=== PATIENT | female | born 1975 | race Caucasian/White ===

== ENCOUNTER 2022-12-24 12:20 | Outpatient (OUT) | payer BC, SELFPAY ==
--- NOTE | 2022-12-24 12:33 | ECG_ITS ---
The [facility] Test Date: 2022-12-24 Pat Name: Amisha Black Department: Room: - Gender: Female Scales Inspector: : 1975 Requested By: STEPHANY GEORGE Order Number: [id number] Reading MD: SOFIA FALL Measurements Intervals [place] Rate: 76 P: 55 GA: 137 QRS: 59 QRSD: 82 T: 38 QT: 365 QTc: 413 Interpretive Statements SINUS RHYTHM No previous ECG available for comparison Electronically Signed On 12-25-2022 6:53:55 EDT by SOFIA FALL
--- NOTE | 2022-12-24 13:11 | PM.PRESUREVA ---
History of Present Illness History of Present Illness Chief complaint: PAT visit Narrative: Patient presents for preadmission testing. The patient reports irregular, extensive, heavy, painful periods. She states she has had low hemoglobin and low iron due to the bleeding. She denies nausea, vomiting, fever, or any other complaints. Review of Systems ROS Narrative REVIEW OF SYSTEMS: Negative except as stated in HPI, ten or more systems reviewed. Constitutional: No fever , chills, weakness ENT: No sore throat or epistaxis Cardiovascular: No edema, chest pain, palpitations, or activity intolerance Respiratory: No shortness of breath, cough, or wheezing Musculoskeletal: No joint pain or swelling Gastrointestinal: No abdominal pain, constipation, diarrhea, or vomiting Genitourinary: No dysuria or hematuria Neurological: No numbness, tingling, weakness, or headache Psychiatric: No mood changes PFSH PFS Medical History (Updated 12/24/22 @ 12:57 by Amisha Limon NP) Surgical History (Updated 12/24/22 @ 12:57 by Amisha Limon NP) Family History (Updated 12/24/22 @ 12:57 by Amisha Limon NP) Other Family history of COPD (chronic obstructive pulmonary disease) Family history of coronary artery disease Family history of diabetes mellitus Family history of heart disease Family history of hypertension Family history of lung cancer Family history of myocardial infarction Social History (Updated 12/24/22 @ 12:51 by Amisha Limon NP) Within the past year, how often did you have a drink containing alcohol: 2-3 times a week Smoking status: Current every day smoker What tobacco products do you use: cigarettes Pack-years instructions: Please document either packs per day or cigarettes per day in order for pack years to calculate correctly. If using both packs per day and cigarettes per day, please make sure that they denote the same thing. If they differ, pack-years will calculate based on packs per day. 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 Highest level of school completed/degree received: some college, no degree Meds Home Medications and Allergies Home Medications Medication Instructions Recorded Confirmed Type ascorbic acid (vitamin C) 500 mg mg PO 12/24/22 History capsule ferrous sulfate 325 mg (65 mg 325 mg PO DAILY 12/24/22 12/24/22 History iron) tablet (Feosol) losartan 50 mg tablet 50 mg PO QDAY 12/24/22 12/24/22 History megestrol 20 mg tablet 20 mg PO QDAY 12/24/22 12/24/22 History omeprazole 40 mg capsule,delayed 40 mg PO QDAY 12/24/22 12/24/22 History release Allergies Allergy/AdvReac Type Severity Reaction Status Date / Time No Known Drug Allergies Allergy Verified 12/24/22 12:48 Exam Narrative Exam Narrative: Constitutional: Awake, alert, comfortable, well-appearing, nontoxic, interactive, vital signs as charted Head: Normocephalic, atraumatic Neck: Supple, normal appearance, normal range of motion, no meningeal signs, no lymphadenopathy Respiratory: No respiratory distress, breath sounds clear Cardiovascular: Regular rate and rhythm, strong and regular heart tones Abdomen: Nontender, normal bowel sounds, soft, no CVA tenderness Musculoskeletal: Normal gait, no swelling or edema Skin: No rashes or induration, no lesions, only visible skin inspected Neuro: No neurological deficits, normal sensation Psychiatric: Oriented ?3, normal affect Assessment and Plan Assessment and Plan (1) Anemia: (2) Dysmenorrhea: (3) Dyspareunia: (4) Menorrhagia: (5) Hypertension: Plan vNOTES hysterectomy, possible bilateral salpingo-oophorectomy, possible cystoscopy, possible exploratory laparotomy scheduled with Dr. Dugan 01/01/2023.
[2022-12-24 13:50] LABS: Basophils Absolute Auto 0.1 10^3/uL (0.0-0.1); Basophils Percent Auto 0.6 % (0.2-2.0); Eosinophils Absolute Auto 0.1 10^3/uL (0.0-0.7); Eosinophils Percent Auto 1.3 % (0.9-7.0); Hematocrit 46.9 % (36.0-48.0); Hemoglobin 15.4 g/dL (12.0-16.0); Immature Granulocytes Abs Auto 0.03 10^3/uL (0.00-0.03); Immature Granulocytes Pct Auto 0.3 % (0.0-0.5); Lymphocytes Absolute Auto 1.9 10^3/uL (1.2-3.8); Lymphocytes Percent Auto 20.6 % (20.5-60.0); Mean Corpuscular HGB Conc 32.8 g/dL (29.9-35.2); Mean Corpuscular Hemoglobin 29.8 pg (26.7-34.0); Mean Corpuscular Volume 90.9 fL (81.0-99.0); Mean Platelet Volume 10.3 fL (9.5-13.5); Monocytes Absolute Auto 0.6 10^3/uL (0.3-0.8); Monocytes Percent Auto 6.2 % (1.7-12.0); Neutrophils Absolute Auto 6.7 10^3/uL (1.4-6.5); Platelet Count 313 10^3/uL (150-450); Red Blood Count 5.16 10^6/uL (4.20-5.40); Red Cell Distribution Width 16.2 % (11.0-15.0); White Blood Count 9.4 10^3/uL (4.0-11.0)
[2022-12-24 14:15] LABS: Alanine Aminotransferase 33 U/L (14-59); Albumin Globulin Ratio 1.2; Albumin Level 4.1 g/dL (3.4-5.0); Alkaline Phosphatase 74 U/L (46-116); Anion Gap 14.5; Aspartate Amino Transferase 15 U/L (15-37); BUN Creatinine Ratio 15.9; Bilirubin Direct 0.1 mg/dL (0.0-0.2); Bilirubin Total 0.5 mg/dL (0.2-1.0); Calcium 9.6 mg/dL (8.5-10.1); Carbon Dioxide 25.5 mmol/L (21.0-32.0); Chloride 103 mmol/L (98-107); Estimated GFR (African America >60 (>=60); Estimated GFR (Non-African Ame >60 (>=60); Globulin 3.5 g/dL; Glucose 114 mg/dL (74-106); INR 0.96; Partial Thromboplastin Time 28.5 sec (22.3-36.2); Prothrombin Time 10.2 sec (9.0-11.6); Sodium 139 mmol/L (136-145); Total Protein 7.6 g/dL (6.4-8.2)
== END 2022-12-24 12:21 ==
LOC: PST 12:27
PROVIDERS: Obstetrics & Gynecology
DX: Z01.810 Encounter for preprocedural cardiovascular examination (principal); Z01.812 Encounter for preprocedural laboratory examination; N92.0 Excessive and frequent menstruation with regular cycle; R10.2 Pelvic and perineal pain; N94.6 Dysmenorrhea, unspecified; N94.10 Unspecified dyspareunia
CPT/HCPCS: 36415; 80048; 80076; 85025; 85610; 85730; 93005; G0463

== ENCOUNTER 2023-01-11 11:50 | Outpatient (OUT) | payer BC, SELFPAY | END 2023-01-11 11:51 | disposition home or self-care (01) | LOC: PST 11:50 | PROVIDERS: Visit Provider Obstetrics & Gynecology | DX: Z01.818 Encounter for other preprocedural examination (principal); N92.0 Excessive and frequent menstruation with regular cycle; R10.2 Pelvic and perineal pain; N94.6 Dysmenorrhea, unspecified; N94.10 Unspecified dyspareunia ==

== ENCOUNTER 2023-01-13 06:13 | Day surgery (SDC) | payer BC, SELFPAY ==
[2022-12-24 12:52] VITALS: BP 157/93; PULSE 77; RESP 20; TEMP 36.5; O2SAT 99
[2023-01-13] VITALS (15 sets, daily range): BP systolic 149–162; BP diastolic 80–104; PULSE 71–92; RESP 14–26; TEMP 36.3–36.7; O2SAT 91–96; BMI 29.5
[2023-01-13 06:23] LABS: Basophils Absolute Auto 0.1 10^3/uL (0.0-0.1); Basophils Percent Auto 0.6 % (0.2-2.0); Eosinophils Absolute Auto 0.2 10^3/uL (0.0-0.7); Hematocrit 46.8 % (36.0-48.0); Hemoglobin 15.7 g/dL (12.0-16.0); Immature Granulocytes Abs Auto 0.05 10^3/uL (0.00-0.03); Immature Granulocytes Pct Auto 0.5 % (0.0-0.5); Lymphocytes Absolute Auto 2.1 10^3/uL (1.2-3.8); Mean Corpuscular HGB Conc 33.5 g/dL (29.9-35.2); Mean Corpuscular Hemoglobin 30.8 pg (26.7-34.0); Mean Corpuscular Volume 91.8 fL (81.0-99.0); Mean Platelet Volume 9.9 fL (9.5-13.5); Monocytes Absolute Auto 0.9 10^3/uL (0.3-0.8); Monocytes Percent Auto 8.4 % (1.7-12.0); Neutrophils Absolute Auto 7.3 10^3/uL (1.4-6.5); Neutrophils Percent Auto 68.5 % (43.0-75.0); Platelet Count 324 10^3/uL (150-450); Red Cell Distribution Width 14.6 % (11.0-15.0); White Blood Count 10.6 10^3/uL (4.0-11.0)
[2023-01-13 06:48] LABS: HCG Quantitative <1 mIU/mL
[2023-01-13] MEDS: LACTATED RINGER'S SOLUTION 1,000 ML 50 ML IV (06:57)
[2023-01-13] MEDS: CEFAZOLIN SODIUM/DEXTROSE,ISO 1 GM/50 ML IV.SOLN IV (07:34)
[2023-01-13] MEDS: 0.9 % SODIUM CHLORIDE 10 ML INJ (08:27)
[2023-01-13] MEDS: LIDOCAINE HCL 1%-EPINEPHRINE 1:100,000 20 ML MDV INJ (08:28)
--- NOTE | 2023-01-13 09:27 | PC.NURSE ---
500CC CLEAR URINE OUT
--- NOTE | 2023-01-13 09:32 | P.ON_ITS ---
Brief Operative Note Date of procedure: 01/13/23 Pre-op diagnosis: menorrhagia, dysmenorrhea Post-op diagnosis: same Procedure: PROCEDURE:? vNOTES hysterectomy with cystoscopy. PREOPERATIVE DIAGNOSIS:? Menorrhagia, dysmenorrhea, dyspareunia. POSTOPERATIVE DIAGNOSIS:? Menorrhagia, dysmenorrhea, dyspareunia. ANESTHESIA:? General. SURGEON:? Duke Dugan D.O. INSURANCE PREMIUM AUDITOR:? GERARDO Espinoza URINE OUTPUT:? Yellow and clear. BLOOD LOSS:? 200 mL. FINDINGS:? Slightly enlarged uterus, normal appearing ovaries, absent tubes. SPECIMEN:? Cervix and uterus. PROCEDURE:? Patient was brought back to the operating room where she was given general anesthesia.? She was placed in the dorsolithotomy position, after being prepped and draped in a sterile fashion.? A Haddad catheter was placed.? A weighted speculum was placed posterior in the vagina.? The cervix was grasped anteriorly and posteriorly with two single tooth tenaculums and placed on traction.? A solution of Marcaine, lidocaine and epinephrine and saline was liberally infiltrated into the cervical vaginal junction.? The knife was then used to circumscribe the cervical vaginal junction and the posterior cul-de-sac was sharply entered without difficulty.? A long weighted duck tail speculum was placed and the peritoneum was tacked to the vaginal epithelium.? We then turned our attention to the uterosacral ligaments which were bilaterally cross clamped, transected and suture ligated and then were held with hemostats.? Attention was then turned to the anterior compartment, where the cervical vaginal junction was similarly divided, and the bladder was then sharply and bluntly dissected off the cervix and the lower uterine segment, and the anterior cul-de-sac was sharply entered.? The vaginal epithelium was tacked to the peritoneum.? Lateral attachments of the uterus were secured with Vinny clamps and suture ligated.? The retractors were then removed and were placed by the path inner ring anteriorly followed by posteriorly.? Once the ring was seated, the gel cap was placed and the laparoscopic ports were placed through this cap and the gas was allowed to insufflate the pelvis.? A GynLap was placed posteriorly to facilitate mobilization of the bowel, control bleeding.? This was later retrieved.? The LigaSure device was used to secure the lateral attachments of the uterus on the left side, including the cardinal ligaments and the uterine vasculature.? Once the utero-ovarian ligament was reached, we turned our attention to the right side where the LigaSure device was used to fully detach the uterus from the pelvic side wall.? The ureters were seen visually; before, during and after the pedicles were created.? The ureters were bilaterally in normal locations, peristalsing.? Please note that the right and left ovary were already removed and were not visualized.?? Please note that the LigaSure was used on the patient?s left side to fully detach the uterus from the pelvic side wall.? The uterus was removed from the field.? The GynLap was also removed from the field.? The inner ring and gel port caps were removed and the vaginal retractors were replaced.? Lateral figure of eight sutures were placed bilaterally, where bleeding occurred, behind the ring, and no further sutures were needed.? The colpopexy was then carried out, passing a stitch posteriorly to the vaginal wall, capturing the left uterosacral ligament, going across the peritoneum posteriorly to the right and exiting out the vaginal wall posteriorly.? The vaginal cuff was closed in a single running locked stitch using 0 Monocryl, and the uterosacral ligaments were cut.? Once the vaginal cuff was fully closed, the uterosacral colpopexy stitch was then tied down tightly, elevating the vaginal cuff to the uterosacral ligaments in a satisfactory manner.? The Haddad catheter was removed and the patient was awakened and taken to recovery in excellent condition.? Sponge, lap and instruments counts correct x2.? Anesthesia: GETA Surgeon: Duke Dugan Customer Engagement Manager: Emily Coppola Estimated blood loss (mL): 50 Pathology: other (uterus and cervix and tubes) Condition: stable Disposition: PACU
[2023-01-13] MEDS: MEPERIDINE HCL/PF 25 MG/ML VIAL IVP (09:43)
[2023-01-13] MEDS: LACTATED RINGER'S SOLUTION 1,000 ML 125 ML IV (09:47)
[2023-01-13] MEDS: HYDROMORPHONE HCL 0.5 MG/0.5 ML SYRINGE IV (09:55)
--- NOTE | 2023-01-13 10:04 | PC.NURSE ---
PERIPAD DRY AND INTACT
--- NOTE | 2023-01-13 10:09 | PC.NURSE ---
Medicaed as ordered fro pain; peripad dry
--- NOTE | 2023-01-13 10:13 | PC.NURSE ---
Medicated for lower abdominal cramping as ordered; peripad dry
[2023-01-13 12:14] LABS: Hematocrit 43.1 % (36.0-48.0); Mean Corpuscular HGB Conc 34.8 g/dL (29.9-35.2); Mean Corpuscular Hemoglobin 31.6 pg (26.7-34.0); Mean Corpuscular Volume 90.7 fL (81.0-99.0); Mean Platelet Volume 10.2 fL (9.5-13.5); Platelet Count 298 10^3/uL (150-450); Red Blood Count 4.75 10^6/uL (4.20-5.40); Red Cell Distribution Width 14.5 % (11.0-15.0); White Blood Count 16.6 10^3/uL (4.0-11.0)
[2023-01-13 12:23] LABS: Estimated GFR (African America >60 (>=60); Estimated GFR (Non-African Ame >60 (>=60)
[2023-01-13 12:35] LABS: Lymphocytes Absolute Manual 0.33 10^3/uL (1.20-3.80); Monocytes Absolute Manual 0.33 10^3/uL (0.30-0.80); Segmented Neut Absolute Manual 15.93 10^3/uL (1.4-6.5)
[2023-01-13] MEDS: CEFAZOLIN SODIUM/DEXTROSE,ISO 2 GM/50 ML PIGGYBACK IV (13:47)
== END 2023-01-13 15:45 | disposition home or self-care (01) ==
LOC: SURGOUT 10:39 → MS 10:40
PROVIDERS: Visit Provider Obstetrics & Gynecology
PROC: (CPT 58552; principal; 2023-01-13 07:30)
DX: N92.0 Excessive and frequent menstruation with regular cycle (principal); N94.6 Dysmenorrhea, unspecified; N94.10 Unspecified dyspareunia; N85.2 Hypertrophy of uterus; N88.8 Other specified noninflammatory disorders of cervix uteri; N83.8 Other noninflammatory disorders of ovary, fallopian tube and broad ligament; N80.209 Endometriosis of unspecified fallopian tube, unspecified depth; F17.210 Nicotine dependence, cigarettes, uncomplicated; I10 Essential (primary) hypertension; D64.9 Anemia, unspecified
CPT/HCPCS: 58552; 36415; 82565; 84520; 84702; 85007; 85025; 86850; 86900; 86901; 88307; 88342; J1170; J2704

== ENCOUNTER 2024-03-02 12:03 | Outpatient (OUT) | payer BC, SELFPAY ==
--- NOTE | 2024-03-02 12:10 | XR_ITS ---
The [address] [address] Patient Name: JACLYN ESCOBAR MRN: [id number] date: 1975 Sex: F Assigned Patient Location: RAD Current Patient Location: RAD Accession/Order Number: [id number] Exam Date: 03/02/2024 12:24 Report Date: 03/02/2024 13:15 At the request of: CAROLYN TAMAYO Procedure: XR chest 2V PROCEDURE: XR chest 2V DATE: 03/02/2024 11:24 AM CDT COMPARISONS: None. CLINICAL INDICATION: 48 years Female Cough, Nicotine Dependence FINDINGS: The cardiomediastinal silhouette and pulmonary vasculature are within normal limits. It appears there is slight diffuse increase interstitial markings which could represent some mild developing chronic lung changes. Lungs are otherwise clear. There is no evidence of pleural effusion or pneumothorax. XR/XR chest 2V IMPRESSION: There is evidence of slight diffuse increase interstitial markings possibly representing chronic lung changes. The history reports cough and nicotine dependence. One could consider screening CT of the chest without contrast to further assess possible chronic lung changes and to assess whether or not there are chest x-ray occult lung nodules. Electronically authenticated by: BHARATI PERALTA Date: 03/02/2024 13:15
--- NOTE | 2024-03-02 12:10 | XR_ITS ---
The [address] [address] Patient Name: JACLYN ESCOBAR MRN: [id number] date: 1975 Sex: F Assigned Patient Location: [facility] Current Patient Location: Accession/Order Number: [id number] Exam Date: 03/02/2024 12:24 Report Date: 03/03/2024 07:00 At the request of: CAROLYN TAMAYO Procedure: XR shoulder LT min 2V PROCEDURE: XR shoulder LT min 2V HISTORY: Left Shoulder Pain COMPARISON: None. FINDINGS: BONES:No fracture, acute abnormality, or significant arthropathy. SOFT TISSUES:No visible soft tissue swelling. EFFUSION:None visible. OTHER: Negative. XR/XR shoulder LT min 2V IMPRESSION: 1. No acute abnormality or significant degenerative changes.. Electronically authenticated by: JOSE THORPE Date: 03/03/2024 07:00
== END 2024-03-02 12:04 | disposition home or self-care (01) ==
LOC: RAD 12:05
PROVIDERS: Visit Provider Nurse Practitioner Family
DX: M25.512 Pain in left shoulder (principal); F17.200 Nicotine dependence, unspecified, uncomplicated; R05.9 Cough, unspecified
CPT/HCPCS: 71046; 73030

== ENCOUNTER 2024-03-17 14:29 | Outpatient (OUT) | payer BC, SELFPAY ==
--- NOTE | 2024-03-17 | CT_ITS ---
[address] [address] Patient Name: JACLYN ESCOBAR MRN: [id number] date: 1975 Sex: F Assigned Patient Location: CT Current Patient Location: Accession/Order Number: [id number] Exam Date: 03/17/2024 14:35 Report Date: 03/18/2024 05:16 At the request of: CAROLYN TAMAYO Procedure: CT chest wo con EXAMINATION: CT chest wo con HISTORY: Abnormal Xray chest R91.8, F17.200 COMPARISON: No relevant comparison available. TECHNIQUE: Multi-planar CT images were obtained without and/or with IV contrast as indicated by examination type. Axial, Coronal, and Sagittal images. Dose reduction techniques were achieved by using automated exposure control and/or adjustment of mA and/or kV according to patient size and/or use of iterative reconstruction technique. FINDINGS: LUNGS: Mild emphysematous changes. Numerous 5 mm nodular opacities scattered throughout the lungs. PLEURA: No mass, effusion, or pneumothorax. VASCULATURE: No abnormality. NICK: No mass or adenopathy. MEDIASTINUM: No mass or adenopathy. CARDIAC: No enlargement or pericardial thickening.. Coronary artery calcifications: AORTA: No aneurysm or dissection. CHEST WALL: No mass or axillary adenopathy. BONES: No bone lesion or fracture. LIMITED ABDOMEN: 2.9 cm right adrenal nodule with tiny focal areas of fat density, suggestive of an adenoma. Limited images of the upper abdomen. OTHER: Negative. CT/CT chest wo con IMPRESSION: 1. Numerous small nodular opacities scattered throughout the lungs proximally 5 mm in size; nonspecific. Chronic changes such as granulomatous disease versus acute infiltrates? Consider follow-up CT chest in 2-3 months to document stability versus clearing. 2. Mild emphysematous changes within lung apices. Electronically authenticated by: JOSE THORPE Date: 03/18/2024 05:16
--- OUTSIDE RECORDS SUMMARY | 2024-03-17 14:33 | XMS_ITS | CCD ---
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 [facility] [employer] [facility]. provides no warranty or guarantee of the accuracy or completeness of information in this document.
== END 2024-03-17 14:30 | disposition home or self-care (01) ==
LOC: CT 14:29
PROVIDERS: Visit Provider Nurse Practitioner Family
DX: F17.200 Nicotine dependence, unspecified, uncomplicated (principal); R91.8 Other nonspecific abnormal finding of lung field
CPT/HCPCS: 71250

== ENCOUNTER 2024-03-25 20:54 | Outpatient (REF) | payer BC, SELFPAY ==
--- OUTSIDE RECORDS SUMMARY | 2024-03-25 20:57 | XMS_ITS | CCD ---
Author Organization [facility] Care Team Providers Care Chief Guard Name Role Phone ARIEL ., DR HAMMOND Admitting Unavailable ARIEL ., DR HAMMOND Attending Unavailable CAROLYN TAMAYO Primary Care Unavailable WEST, DR HU Ruff Consulting Unavailable ARIEL ., DR HAMMOND Consulting Unavailable Johan Tai VANCE Primary Care Provider JOHNNIE PALUMBO Referring Unavailable JOHAN, MUHAMID Sangita Primary Care Unavailable JOHAN, ANNETTEHAMID Sangita Attending Unavailable JOHAN, ANNETTEHAMID M Referring Unavailable JOHAN, MUHAMID M Primary Care Unavailable JESUS FLORES Attending Unavailable JOHAN, MUHAMID Sangita Referring Unavailable JOHAN, MUHAMID M Primary Care Unavailable CAROLYN TAMAYO Primary Care Physician PHONG TAMAYO Attending UnavailPHONG Espinal Admitting Unavailsamir e CAROLYN TAMAYO Attending Unavailable CAROLYN TAMAYO Admitting Unavailable CAROLYN TAMAYO Attending Unavailable CAROLYN TAMAYO Attending Unavailable Allergies Allergy Classification Reported Allergen(s) Allergy Type Date of Onset Reaction(s) Facility (1 source) No Known Medication Allergies; Translations: [No Known Medication Allergies] Propensity to adverse reactions (disorder) [facility] Repository Medications Current Medications Medication Drug Class(es) Dates Sig (Normalized) Sig (Original) Albuterol (Eqv-ProAir HFA) 90 mcg/inh inhalation aerosol (1 source) Start: 03-02-2024 take 2 puff(s) by inhalation every six hours Albuterol (Eqv-ProAir HFA) 90 mcg/inh inhalation aerosol 2 puff(s), Inhalation, q6hr, 18 gm, Refill(s) 2, [facility] [id number], 169.3, cm, 03/02/24 11:06:00 EDT, Height/Length Dosing, [...] day(s), # 6 tab(s), Refills(s) 0, Pharmacy: [facility] [id number], 169.3, cm, 03/02/24 11:06:00 EDT, Height/Length Dosing, [...] day(s), # 21 tab(s), Refills(s) 0, Pharmacy: [facility] [id number], 169.3, cm, 03/02/24 11:06:00 EDT, Height/Length Dosing, [...] infection (5 sources) Viral gastroenteritis due to Johnson-like agent; Translations: [Acute gastroenteropathy due to Johnson agent] Onset: 10-09-2022 10-09-2022 Episodic Mood disorders [...] hours Cough Smoker Refills: 2 [facility] [id number] New azithromycin (azithromycin 250 mg Tab) 1 Packets By Mouth As Directed Bilateral otitis media with effusion Cough Smoker Duration: 5 Days as directed on package labeling Pickup at [facility] [id number] New methylPREDNISolone (Medrol 4 mg Tab) 1 Packets By Mouth As Directed Bilateral otitis media with effusion Cough Smoker Duration: 6 Days as directed on package labeling Pickup at [facility] [id number] Unchanged amlodipine (amLODIPine 10 mg Tab) 1 Tablets By Mouth Every day Unchanged losartan (losartan 50 mg Tab) 1 Tablets By Mouth Every day Unchanged omeprazole (omeprazole 40 mg Mesha) Pharmacy Information [facility] [id number]: [address], [place] [id number] [phone] Allergies No Known Medication Allergies Problems Ongoing - Any problem that you are currently receiving treatment for. HTN (hypertension) Patient Survey You may receive a survey via text or e-mail asking about your office visit. Please share your experience with us by completing your survey. We appreciate your feedback and thank you for choosing us for your care. Normal [facility] CBC w/ Auto Diffon 4 Basophils/100 WBC (Bld) 0.4 % Normal 0.0-2.0 [facility] Comment on above: Performed By: #### 2 [id number] #### [facility] [address] [place] [address] Basophils/Leukocytes Auto (Bld) [Pure # fraction] 0.0 E9/L Normal 0.0-0.2 [facility] Comment on above: Performed By: #### 2 884148 #### [facility] [address] [place] [address] Eosinophils (Bld) [#/Vol] 0.1 E9/L Normal 0.0-0.5 [facility] Comment on above: Performed By: #### 2 [id number] #### [facility] [address] [place] [address] Eosinophils/100 WBC (Bld) 1.2 % Normal 0.0-8.0 [facility] Comment on above: Performed By: #### 2 673607 #### [facility] [address] [place] [address] Erythrocyte distribution width (RBC) [Ratio] 13.2 % Normal 10.9-14.2 [facility] Comment on above: Performed By: #### 2 [id number] #### [facility] [address] [place] [address] Hematocrit (Bld) [Volume fraction] 52.0 % High 34.0-46.0 [facility] Comment on above: Performed By: #### 2 259991 #### [facility] [address] [place] [address] Hemoglobin (Bld) [Mass/Vol] 17.8 g/dL High 12.0-16.0 [facility] Comment on above: Performed By: #### 2 093558 #### [facility] [address] [place] [address] Lymphocytes (Bld) [#/Vol] 2.3 E9/L Normal 1.0-4.0 [facility] Comment on above: Performed By: #### 2 880017 #### [facility] [address] [place] [address] Lymphocytes/100 WBC (Bld) 26.7 % Normal 14.0-50.0 [facility] Comment on above: Performed By: #### 2 078591 #### [facility] [address] [place] [address] MCH (RBC) [Entitic mass] 33.6 pg Normal 27.0-34.0 [facility] Comment on above: Performed By: #### 2 871216 #### [facility] [address] [place] [address] MCHC (RBC) [Mass/Vol] 34.3 g/dL Normal 31.4-36.0 [facility] Comment on above: Performed By: #### 2 167430 #### [facility] [address] [place] [address] MCV (RBC) [Entitic vol] 98.1 fL Normal 80.0-100.0 [facility] Comment on above: Performed By: #### 2 448462 #### [facility] [address] [place] [address] Monocytes (Bld) [#/Vol] 0.6 E9/L Normal 0.2-1.0 [facility] Comment on above: Performed By: #### 2 945350 #### [facility] [address] [place] [address] Neutrophils (Bld) [#/Vol] 5.6 E9/L Normal 2.0-7.5 [facility] Comment on above: Performed By: #### 2 335158 #### [facility] [address] [place] [address] Neutrophils/100 WBC (Bld) 64.2 % Normal 36.0-75.0 [facility] Comment on above: Performed By: #### 2 478934 #### [facility] [address] [place] [address] Platelet mean volume (Bld) [Entitic vol] 9.4 fL Normal 6.4-10.8 [facility] Comment on above: Performed By: #### 2 924782 #### [facility] [address] [place] [address] Platelets (Bld) [#/Vol] 309.0 E9/L Normal 150.0-500.0 [facility] Comment on above: Performed By: #### 2 550404 #### [facility] [address] [place] [address] RBC (Bld) [#/Vol] 5.3 E12/L Normal 4.3-5.9 [facility] Comment on above: Performed By: #### 2 810880 #### [facility] [address] [place] [address] WBC corrected for nucl RBC Auto (Bld) [#/Vol] 8.7 E9/L Normal 4.0-11.0 [facility] Comment on above: Performed By: #### 2 549225 #### [facility] [address] [place] [address] CHEMISTRYOrdered By: SYSTEM SYSTEM on 03-02-2024 Albumin [...] 03-02-2024 Albumin [Mass/Vol] 4.5 g/dL Normal 3.3-5.0 [facility] Comment on above: Performed By: #### 2 270620 #### [facility] [address] [place] [address] Albumin/Globulin (S) [Mass conc ratio] 1.7 Normal 1.1-2.2 [facility] Comment on above: Performed By: #### 2 838794 #### [facility] [address] [place] [address] ALP [Catalytic activity/Vol] 86 Int._Unit/L Normal 21-98 [facility] Comment on above: Performed By: #### 2 685497 #### [facility] [address] [place] [address] ALT No additional P-5'-P [Catalytic activity/Vol] 25 Int._Unit/L Normal 6-46 [facility] Comment on above: Performed By: #### 2 979696 #### [facility] [address] [place] [address] Anion gap [Moles/Vol] 15 mmol/L Normal 6-16 [facility] Comment on above: Performed By: #### 2 525047 #### [facility] [address] [place] [address] AST [Catalytic activity/Vol] 17 Int._Unit/L Normal 5-43 [facility] Comment on above: Performed By: #### 2 110132 #### [facility] [address] [place] [address] Bilirubin [Mass/Vol] 0.8 mg/dL Normal 0.0-1.1 [facility] Comment on above: Performed By: #### 2 021953 #### [facility] [address] [place] [address] Calcium [Mass/Vol] 9.7 mg/dL Normal 8.9-11.1 [facility] Comment on above: Performed By: #### 2 408639 #### [facility] [address] [place] [address] Chloride [Moles/Vol] 102 mmol/L Normal 101-111 [facility] Comment on above: Performed By: #### 2 426093 #### [facility] [address] [place] [address] CO2 [Moles/Vol] 25 mmol/L Normal 21-31 [facility] Comment on above: Performed By: #### 2 724242 #### [facility] [address] [place] [address] Creatinine [Mass/Vol] 0.7 mg/dL Normal 0.5-1.3 [facility] Comment on above: Performed By: #### 2 188122 #### [facility] [address] [place] [address] Globulin (S) [Mass/Vol] 2.6 g/dL Normal 1.4-4.0 [facility] Comment on above: Performed By: #### 2 830445 #### [facility] [address] [place] [address] Glucose [Mass/Vol] 119 mg/dL Normal 55-199 [facility] Comment on above: Performed By: #### 2 778117 #### [facility] [address] [place] [address] Potassium [Moles/Vol] 3.8 mmol/L Normal 3.5-5.3 [facility] Comment on above: Performed By: #### 2 882836 #### [facility] [address] [place] [address] Protein [Mass/Vol] 7.1 g/dL Normal 6.0-7.8 [facility] Comment on above: Performed By: #### 2 191874 #### [facility] [address] [place] [address] Sodium [Moles/Vol] 138 mmol/L Normal 135-145 [facility] Comment on above: Performed By: #### 2 244132 #### [facility] [address] [place] [address] Urea nitrogen [Mass/Vol] 10 mg/dL Normal 5-21 [facility] Comment on above: Performed By: #### 2 345685 #### [facility] [address] [place] [address] Urea nitrogen/Creatinine [Mass ratio] 14 No Units Normal 10-20 [facility] Comment on above: Performed By: #### 2 824679 #### [facility] [address] [place] [address] Family Medicine Office/Clini c Noteon 03-02-2024 Family [...] day(s), # 6 tab(s), Refills(s) 0, Pharmacy: [facility] [id number], 169.3, cm, 03/02/24 11:06:00 EDT, Height/Length Dosing, 87.2, kg, 03/02/24 11:06:00 EDT, Weight Dosing methylPREDNISolone, = 1 packet(s), Oral, As Directed, as directed on package labeling, X 6 day(s), # 21 tab(s), Refills(s) 0, Pharmacy: [facility] [id number], 169.3, cm, 03/02/24 11:06:00 EDT, Height/Length Dosing, 87.2, kg, 03/02/24 11:06:00 EDT, Weight Dosing CBC w/ Auto Diff Comprehensive Metabolic Panel Lab Specimen Collect [id number] Lipid Panel TSH With T4fr Reflex 2. Cough (R05.9: Cough, unspecified) Encouraged to stop smoking Ordered: albuterol, 2 puff(s), Inhalation, q6hr, 18 gm, Refill(s) 2, [facility] [id number], 169.3, cm, 03/02/24 11:06:00 EDT, Height/Length Dosing, 87.2, kg, 03/02/24 11:06:00 EDT, Weight Dosing azithromycin, = 1 (more content not included)... Normal [facility] Comment on above: Result Comment: [...] 03-02-2024 Cholesterol [Mass/Vol] 228 mg/dL High 120-200 [facility] Comment on above: Performed By: #### 2 029120 #### [facility] [address] [place] [address] Cholesterol in HDL [Mass/Vol] 43 mg/dL Invalid Interpretation Code [facility] Comment on above: Result Comment: '>= 60 LOW RISK' '<= 40 HIGH RISK' Performed By: #### 2 [id number] #### [facility] [address] [place] [address] Cholesterol in LDL [Mass/Vol] 179 mg/dL High <=129 [facility] Comment on above: Performed By: #### 2 233733 #### [facility] [address] [place] [address] Cholesterol in VLDL [Mass/Vol] 27 mg/dL Normal 7-40 [facility] Comment on above: Performed By: #### 2 530970 #### [facility] [address] [place] [address] Triglyceride [Mass/Vol] 133 mg/dL Normal <=149 [facility] Comment on above: Performed By: #### 2 610072 #### [facility] [address] [place] [address] TSH With T4fr Reflexon 03-02 TSH Qn 1.92 m[IU]/L Normal 0.34-5.60 [facility] Comment on above: Performed By: #### 1 [id number] #### [facility] [address] [place] [address] eGFRon 03-02-2024 eGFR 108 mL/min/1.73 m2 Normal >=59 [facility] Comment on above: Order Comment: Order added by Discern Expert. Performed By: #### 1 [id number] #### [facility] [address] [place] [address] CT THORACIC SPINE WO CONTon 07-22-2023 CT [...] Findings Committee. J Am Artur Radiol. 2017 Aug;14(8):5242-7776. Finalized by Chandler Quigley MD on 07/22/2023 4:45 PM Normal [facility] XR RIBS LT 2 VWSon 4 XR [...] Shannon MD on 07/21/2023 1:29 PM Normal [facility] FREE T4on 11-20-2022 Free T4 [Mass/Vol] 0.82 ng/dL Normal 0.76-1.46 [facility] Comment on above: Performed By: #### F T4 #### [facility] [address] [address] [address] Ron Harris GLYCOHEMOGLOBIN A1Con 2022 ADA RECOMMENDATION SEE BELOW Normal [facility] Comment on above: Result Comment: ADA RECOMMENDED LIMIT 4.0 - 6.0 ADA THERAPEUTIC TARGET < 7.0 ACTION SUGGESTED > 7.0 Performed By: #### A 1C #### [facility] [address] [address] [address] Ron Harris Glucose [Mass/Vol] 100 mg/dL Normal [facility] Comment on above: Performed By: #### A 1C #### [facility] [address] [address] [address] Ron Harris HbA1c (Bld) [Mass fraction] 5.1 % Normal 4.5-6.2 [facility] Comment on above: Performed By: #### A 1C #### [facility] [address] [address] [address] Ron Harris PREG QUANT HCGon 11-20-2022 HCG QUANT <1 Normal [facility] Comment on above: Performed By: #### T SH, PREGQNT #### [facility] [address] [address] [address] Ron Harris HCG RANGE SEE BELOW Normal [facility] Comment on above: Result Comment: 5-50 0.2-1 WEEK 50-500 1-2 WEEKS 100-5,000 2-3 WEEKS 500-10,000 3-4 WEEKS 1,000-50,000 4-5 WEEKS 10,000-100,000 5-6 WEEKS 15,000-200,000 6-8 WEEKS 10,000-100,000 2-3 MONTHS Performed By: #### T SH, PREGQNT #### [facility] [address] [address] [address] Ron Harris PROTIMEon 11-20-2022 INR Coag (PPP) [Relative time] 0.97 {INR} Normal [facility] Comment on above: Performed By: #### P TT, PT #### [facility] [address] [place] [address] Dr. Ron Harris INR GUIDELINES SEE BELOW Normal [facility] Comment on above: Result Comment: SHAMEKA RED INR: 2.0 - 3.0 CONDITIONS NOT LISTED BELOW 2.5 - 3.5 FOR PROSTHETIC HEART VALVE REPLACEMENT 2.5 - 3.5 RECURRENT THROMBOSIS Performed By: #### P TT, PT #### [facility] [address] [place] [address] Dr. Ron Harris PT Coag (PPP) [Time] 10.3 s Normal 9.0-11.6 [facility] Comment on above: Performed By: #### P TT, PT #### [facility] [address] [place] [address] Dr. Ron Harris PTTon 11-20-2022 aPTT Coag (Bld) [Time] 28.8 s Normal 22.3-36.2 [facility] Comment on above: Performed By: #### P TT, PT #### [facility] [address] [place] [address] Dr. Ron Harris TSHon 11-20-2022 TSH 1.739 uIU/mL Normal 0.358-3.740 [facility] Comment on above: Performed By: #### T SH, PREGQNT #### [facility] [address] [place] [address] Dr. Ron Harris US PELVIS AND TRANSVAGon [...] by: HU WHITTEN Date: 2022-11-20 17:27 Normal [facility] Vital Signs Date Time Vital Sign Value Performing Clinician Facility 08-13-2023 11:46-0500 Body height 170.2 cm Jesus Flores [employer] PROGRAM ASSOCIATE-[employer]UCATION RESOURCE ROOM TEACHER Work Phone: [facility] 08-13-2023 11:46-0500 Body mass index (BMI) [Ratio] 31.07 kg/m2 Jesus Flores [employer]IV[employer] SERVICES PROGRAM ASSOCIATE-SPE[employer] EDUCATION RESOURCE ROOM TEACHER Work Phone: [facility] 08-13-2023 11:46-0500 Body temperature 98.01 [degF] Jesus Flores [employer]IV[employer] SERVICES PROGRAM ASSOCIATE-SPECIAL EDUCATION RESOURCE ROOM TEACHER Work Phone: [facility] 08-13-2023 11:46-0500 Body weight 89.99 kg Jesus Flores [employer]IV[employer] SERVICES PROGRAM ASSOCIATE-SPE[employer] EDUCATION RESOURCE ROOM TEACHER Work Phone: [facility] 08-13-2023 11:46-0500 Diastolic blood pressure 102 mm[Hg] Jesus Flores [employer]IVERSITY SERVICES PROGRAM ASSOCIATE-SPECIAL EDUCATION RESOURCE ROOM TEACHER Work Phone: [facility] 08-13-2023 11:46-0500 Heart rate 108 /min Jesus Flores [employer]IV[employer] SERVICES PROGRAM ASSOCIATE-SPE[employer] EDUCATION RESOURCE ROOM TEACHER Work Phone: [facility] 08-13-2023 11:46-0500 Respiratory rate 22 /min Jesus Flores [employer] SERVICES PROGRAM ASSOCIATE-SPECIAL EDUCATION RESOURCE ROOM TEACHER Work Phone: [facility] 08-13-2023 11:46-0500 SaO2% (BldA) [Mass fraction] 97 % Jesus Flores [employer]IVERS[employer] SERVICES PROGRAM ASSOCIATE-SPE[employer] EDUCATION RESOURCE ROOM TEACHER Work Phone: [facility] 08-13-2023 11:46-0500 Systolic blood pressure 166 mm[Hg] Jesus Flores [employer]IV[employer] SERVICES PROGRAM ASSOCIATE-SPECIAL EDUCATION RESOURCE ROOM TEACHER Work Phone: [facility] Encounters Encounter Date Encounter Type Care Provider Facility Start: 03-24-2024 ambulatory CAROLYN TAMAYO Facili ty:[facility] Start: 03-02-2024 End: 03-02-2024 Lab Drop off CAROLYN TAMAYO [facility] Start: 03-02-2024 End: 03-02-2024 ambulatory [employer] TEACHER CAROLYN TAMAYO Facility:[facility] Start: 03-01-2024 ambulatory CAROLYN TAMAYO Facility :[facility] Start: 09-18-2023 Refill Tai Prado MD Work Phone: [facility] Comment on above: Gastroesophageal ref lux disease without esophagitis Start: 08-18-2023 Orders Only Jesus adams [employer] PROGRAM ASSOCIATE-SPECIAL EDUCATION RESOURCE ROOM TEACHER Work Phone: [facility] Comment on above: Vaginitis Start: 08-13-2023 End: 08-13-2023 ambulatory [facility] Start: 08-13-2023 End: 08-13-2023 Office outpatient visit 10 minutes Jesus Flores [employer]IVERS[employer] SERVICES PROGRAM ASSOCIATE-SPECIAL EDUCATION RESOURCE ROOM TEACHER Work Phone: [facility] Comment on above: Acute frontal sinusi tis, recurrence not specified (Primary Dx); Cough in adult; Bilateral non-suppurative otitis media; Essential hypertension Start: 08-05-2023 End: 08-05-2023 ambulatory TAI PRADO [facility] Start: 07-23-2023 Telephone encounter Avril Steel CMA [facility] Start: 07-21-2023 End: 07-22-2023 ambulatory [facility] Start: 11-20-2022 End: 11-21-[address] STEPHANY GEORGE . Facility: Procedures Date Procedure Procedure Detail Performing Clinician Start: 08-05-2023 Adult depression scr eening assessment Jesusmargarito Flores [employer]IVERSITY SERVICES PROGRAM ASSOCIATE-SPECIAL EDUCATION RESOURCE ROOM TEACHER Work Phone: Start: 05-24-2021 Adult depression scr eening assessment Avril Steel [employer]AREHOUSE TEAM MEMBER Start: 12-08-2020 Mammography Adysan Sle ek [employer]SE TE[employer] MEMBER Hysterectomy CAROLYN TAMAYO Plan of Treatment Date Care Activity Detail Author Start: 08-14-2024 Tobacco Screening Tobacco Screening [facility] Start: 08-13-2024 Adult BMI Screening Adult BMI Screen ing [facility] Start: 08-13-2024 Tobacco Screening Tobacco Screening [facility] Start: 08-05-2024 Depression Screening Depression Scre ening [facility] Start: 06-10-2024 Adult BMI Screening Adult BMI Screen ing [facility] Start: 06-10-2024 Tobacco Screening Tobacco Screening [facility] Start: 11-07-2023 Adult BMI Follow Up Plan Adult BMI Follow Up Plan [facility] Start: 09-15-2023 End: 09-15-2023 Patient encounter procedure 09/15/2023 10:30 AM EST Office Visit [facility] [address] [place] [phone] Tai Prado MD [address] [place] [address] [phone] [facility] Start: 08-05-2023 End: 08-05-2023 Patient encounter procedure 08/05/2023 2:30 PM EST Office Visit [facility] [address] [place] [address] [phone] Tai Prado MD [address] [place], [place] [address], [place] [address] [facility] Start: 05-24-2022 Depression Screening Depression Scre ening [facility] Start: 12-08-2021 Screening for malign ant neoplasm of breast Mammogram [facility] Start: 1996 DTaP,Tdap and Td Vaccines (1 - Tdap) DTaP,Tdap and Td Vaccines (1 - Tdap) [facility] Start: 1977 Tobacco Counseling Tobacco Counselin g [facility] Immunizations Immunization Date Immunization Notes Care Provider Fa cility 02-26-2022 SARS-CoV-2 (COVID-19 ) mRNA BNT-162b2 judith TAMAYO [facility] [place] NEGATED: Highlighted row has not occurred!08-18-2018 influenza, injectable, quadrivalent, preservative free [facility] Comment on above: Deferred: Patient de cision Payers Date Payer Category Payer Unknown [employer] OUT OF STATE PPO/TRUST [id number] 2019-Present [phone] [address] [place] [address] [id number] 1977 Unknown [id number] 1977 Unknown [id number] 1977 Unknown [id number] 1977 Unknown [id number] 1977 Unknown [id number] 1977 Unknown [id number] 1977 Unknown [id number] 1977 Unknown [id number] 1959 Unknown [id number] Unknown [id number] Social History Date Type Detail Facility Start: 09-04-2022 [facility] History of tobacco use Cigarette Smoker P [facility] Start: 07-31-2020 End: 09-04-2022 Cigarettes smoked current (pack per day) - Reported 1 [facility] Start: 09-04-2022 Tobacco use and exposure Smokeless tobacco non-user [facility] Start: 06-10-2023 End: 08-14-2023 Alcohol intake Current drinker of alcohol (finding) [facility] Start: 07-31-2020 End: 06-10-2023 Tobacco use panel [facility] Adolescent depressio n screening assessment 0 [facility] Start: 1975 Sex Assigned At Not on file P [facility] [facility] Start: 03-02-2024 Tobacco smoking status Heavy t obacco smoker (finding) [facility] [place] Goals Date Patient Goal Desired Activity /State [...] She would like something called in to [facility] pharmacy for yeast infection. sent Patient notified. documented in this encounter [facility] 08-18-2023 Telephone encount er Note Jaclyn called stated she was seen on Friday and provider said to call office if she felt she was getting a yeast infection. She would like something called in to [facility] pharmacy for yeast infection. [facility] 08-18-2023 Telephone encount er Note sent [facility] 08-18-2023 Telephone encount er Note Patient notified. [facility] 08-13-2023 History of Presen t illness Narrative [...] nursing note reviewed. Exam conducted with a drying oven attendant present. Constitutional: Appearance: Normal appearance. HENT: Head: [...] Schaffer 08/14/23 0936 documented in this encounter [facility] 07-23-2023 Miscellaneous Notes Formattin g of this [...] got her scheduled. documented in this encounter [facility] 07-23-[address] Note Dr[address] Palumbo [...] ordered 07/04/23 and resulted 07/21/23. In media [facility] 07-23-2023 Telephone encount er Note Patient should set up an appointment to further review. In person or Video OK. Thanks, TAI PRADO MD 07/23/23 [facility] 07-23-2023 Telephone encount er Note Called patient and got her scheduled. [facility] Evaluation + Plan note Future Appointments Appointment Date:03/24/2024 07:40:00 AM Scheduled Provider:CAROLYN TAMAYO CNP Location:[facility] Appointment Type:[facility] Evaluation note Diagnosis Acute frontal sinusitis, recurrence not specified- Primary Cough in adult Bilateral non-suppurative otitis media Nonsuppurative otitis media, not specified as acute or chronic Essential hypertension Unspecified essential hypertension documented [facility] Diagnosis Gastroesophageal reflux disease without esophagitis Esophageal reflux documented [facility] Narrative No data available for this section [facility] Discharge instructions No data available for this section [facility] InstructionsNot on filedocumented in this encounter [facility]* Attachments The following attachments cannot be sent through Care Everywhere. * Cough, runny nose, and the common cold ([place]) * Sinusitis in adults ([place]) [facility] in [facility] SystemInstructionsNot on file documented in this encounterPro[facility] SystemInstructionsNot on file documented in this encounterProWooster [facility] SystemInstructionsNot on file documented in this encounterZ[facility] SystemProgress note No data available for this section [facility] Summary Purpose Family History No Family History [...] DATE CREATED AUTHOR AUTHOR'S ORGANIZ ATION 07/27/2023 [facility] DATE CREATED AUTHOR AUTHOR'S ORGANIZ ATION 08/17/2023 [facility] DATE CREATED AUTHOR AUTHOR'S ORGANIZ ATION 03/04/2024 [facility] DATE CREATED AUTHOR AUTHOR'S ORGANIZ ATION 03/10/2024 [facility] DATE CREATED AUTHOR AUTHOR'S ORGANIZ ATION 03/23/2024 [facility] Care Teams (unrecognized sec tion and content) Chief Guard Relationship Specialty Start Date End Date Tai Prado MD [address] [place] [address] PCP - General Internal Medicine 01/31/23 Chief Guard Relationship Specialty Start Date End Date Tai Prado MD [address] [place] [address] PCP - General Internal Medicine 01/31/23 Chief Guard Relationship Specialty Start Date End Date Tai Prado MD [address] [place] [address] PCP - General Internal Medicine 01/31/23 Chief Guard Relationship Specialty Start Date End Date aTi Prado MD [address] [facility] Evelyn [facility] [place] [address] PCP - General Internal Medicine 01/31/23 Reason [...] BE BASED ON THE PRIMARY CLINICAL RECORDS. [facility]. provides no warranty or guarantee of the accuracy or completeness of information in this document.
[2024-03-30 14:10] LABS: Age Gdln ACOG Testing Note (.); HPV Aptima Negative (Negative); IGP, Aptima HPV, rfx 16/18,45 Note (.)
== END 2024-03-25 20:55 | disposition home or self-care (01) ==
LOC: LAB 20:54
PROVIDERS: Visit Provider Obstetrics & Gynecology
DX: Z01.419 Encounter for gynecological examination (general) (routine) without abnormal findings (principal)
CPT/HCPCS: 87624; 88175

== ENCOUNTER 2025-02-15 12:22 | Outpatient (OUT) | payer BC, SELFPAY ==
--- NOTE | 2025-02-15 12:28 | XR_ITS ---
The [address] [address] Patient Name: JACLYN ESCOBAR MRN: [id number] date: 1975 Sex: F Assigned Patient Location: [facility] Current Patient Location: [facility] Accession/Order Number: [id number] Exam Date: 02/15/2025 12:59 Report Date: 02/15/2025 13:01 At the request of: CAROLYN TAMAYO NP Procedure: XR pelvis 1-2V LUMBAR SPINE - 5 views, pelvis one view CLINICAL HISTORY: Back pain COMPARISON: None FINDINGS: Lumbar spine: Vertebral body and disc space heights appear maintained. Mild endplate and facet joint degenerative change. Pelvis: Mild degenerative changes involving the SI joints. Mild degenerative changes involving the pubic symphysis. Hips appear grossly unremarkable. No acute bony process. XR/XR pelvis 1-2V IMPRESSION: MILD DEGENERATIVE CHANGES INVOLVING THE LUMBAR SPINE AND PELVIS WITHOUT ACUTE BONY PROCESS. Impression dictated by: Zeke Tejada Jr., D.O. 02/15/2025 1:01 PM Dictation Location: [facility] Electronically authenticated by: [id number] Y Date: 02/15/2025 13:01
--- NOTE | 2025-02-15 12:28 | XR_ITS ---
The [address] [address] Patient Name: JACLYN ESCOBAR MRN: [id number] date: 1975 Sex: F Assigned Patient Location: [facility] Current Patient Location: [facility] Accession/Order Number: [id number] Exam Date: 02/15/2025 12:59 Report Date: 02/15/2025 13:01 At the request of: CAROLYN TAMAYO NP Procedure: XR pelvis 1-2V LUMBAR SPINE - 5 views, pelvis one view CLINICAL HISTORY: Back pain COMPARISON: None FINDINGS: Lumbar spine: Vertebral body and disc space heights appear maintained. Mild endplate and facet joint degenerative change. Pelvis: Mild degenerative changes involving the SI joints. Mild degenerative changes involving the pubic symphysis. Hips appear grossly unremarkable. No acute bony process. XR/XR lumbar spine min 4V IMPRESSION: MILD DEGENERATIVE CHANGES INVOLVING THE LUMBAR SPINE AND PELVIS WITHOUT ACUTE BONY PROCESS. Impression dictated by: Zeke Tejada Jr., D.O. 02/15/2025 1:01 PM Dictation Location: [facility] Electronically authenticated by: [id number] Y Date: 02/15/2025 13:01
== END 2025-02-15 12:23 | disposition home or self-care (01) ==
LOC: RAD 12:25
PROVIDERS: PCP Nurse Practitioner Family; Visit Provider Nurse Practitioner Family
DX: M54.50 Low back pain, unspecified (principal); M51.369 Other intervertebral disc degeneration, lumbar region without mention of lumbar back pain or lower extremity pain
CPT/HCPCS: 72110; 72170

== ENCOUNTER 2025-03-15 11:00 | Outpatient (OUT) | payer BC, SELFPAY ==
--- NOTE | 2025-03-15 11:05 | US_ITS ---
The [address] [address] Patient Name: JACLYN ESCOBAR MRN: [id number] date: 1975 Sex: F Assigned Patient Location: [place] Current Patient Location: [place] Accession/Order Number: [id number] Exam Date: 03/15/2025 11:08 Report Date: 03/15/2025 12:12 At the request of: CAROLYN TAMAYO NP Procedure: US extremity nonvascular RT LIMITED ULTRASOUND - right lower back CLINICAL DATA: Palpable lump at the right lower back just above the sacrum for approximately 9 months following a fall. COMPARISON: None Real-time ultrasound evaluation of the area of palpable concern was performed. The left side was also scanned for comparison. No focal cystic or solid masses are identified. No asymmetries are seen. US/US extremity nonvascular RT IMPRESSION: NO ULTRASOUND ABNORMALITY AT THE SITE OF PALPABLE CONCERN. CLINICAL FOLLOW-UP IS RECOMMENDED. CT FOLLOW-UP COULD ALSO BE CONSIDERED IF ADDITIONAL IMAGING EVALUATION IS STILL WARRANTED. Impression dictated by: Reva Sharp M.D. 03/15/2025 12:12 PM Dictation Location: [place] [address] Electronically authenticated by: [id number] Y Date: 03/15/2025 12:12
== END 2025-03-15 11:01 | disposition home or self-care (01) ==
LOC: US 11:00
PROVIDERS: PCP Nurse Practitioner Family; Visit Provider Nurse Practitioner Family
DX: M46.1 Sacroiliitis, not elsewhere classified (principal)
CPT/HCPCS: 76882

== ENCOUNTER 2025-03-30 20:23 | Outpatient (REF) | payer BC, SELFPAY ==
--- OUTSIDE RECORDS SUMMARY | 2025-03-30 20:26 | XMS_ITS | CCD ---
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 unspecified) - Plan to re-x-ray the pelvis, sacroiliac joints, and lumbar spine to further evaluate the lump. - Consideration of iwyr-lod-xyrmhlw analgesics such as ibuprofen or acetaminophen for pain management. Ordered: XR Pelvis 1 or 2 Views XR Spine Lumbosacral Minimum 4 Views 2. Smoker (F17.200: Nicotine dependence, unspecified, uncomplicated) We strongly recommend to quit tobacco use. Cigarette smoking harms nearly every organ of the body, causes many diseases, and reduces the health of smokers in general. Quitting smoking lowers your risk for smoking-related diseases and can add years to your life. We encourage you to visit www.smokefree.gov access to helpful resources including free telephone support. If you decide on prescription treatment to help you quit, we would be happy to provide these. 3. BMI 32.0-32.9,adult (Z68.32: Body mass index [BMI] 32.0-32.9, adult) bmi 32.35 4. Class 1 obesity due to excess calories with body mass index (BMI) of 32.0 to 32.9 in adult (E66.811: Obesity, class 1) The standard range for ages 18 and older is >=18.5 and < 25 kg/m2. Your BMI today was above this range, this falls in the overweight to obese category and there are medical benefits to weight loss. We can offer counselling, referral, and/or medical support in addressing this problem. Your BMI and weight management will be followed at subsequent visits. Follow-up No qualifying data available Problem List/Past Medical History Ongoing COPD without exacerbation HTN (hypertension) Pulmonary nodule Historical No qualifying data Procedure/Surgical History Hysterectomy. Medications amLODIPine 10 mg Tab, 10 mg= 1 tab(s), Oral, Daily atorvastatin 20 mg Tab, 20 mg= 1 tab(s), Oral, Daily losartan 100 mg Tab, 100 mg= 1 tab(s), Oral, Daily nicotine 21 mg/24 hr Transderm ER Film omeprazole 40 mg Cap-DR, 40 mg= 1 cap(s), Oral, Daily, 1 refills Allergies No Known Medication Allergies Social History Substance Abuse Never., 05/19/2024 Tobacco 10 or more cigarettes (1/2 pack or more)/day in last 30 days Tobacco Use:., 02/15/2025 Immunizations Vaccine Date Status SARS-CoV-2 (COVID-19) mRNA BNT-162b2 vax 02/26/2022 Recorded Normal [facility] Comment on above: Result Comment: Elec tronically Signed By: CAROLYN TAMAYO CNP\[place]\Date and Time Signed: 02/15/25 12:[address] Chest w/o Contraston 07-0 3-2025 CT Chest w/o Contrast Exam Date/Time: 01/12/2025 11:10 EDT Reason for Exam: R91.1;Lung nodule Report IMPRESSION: 2.3 MM NONCALCIFIED NODULE PLEURAL-BASED RIGHT UPPER LOBE NODULE. RECOMMENDATIONS BELOW. EMPHYSEMA. SINCE EMPHYSEMA PULMONARY CT IS AN INDEPENDENT RISK FACTOR FOR LUNG CANCER, RECOMMEND PATIENT BE EVALUATED FOR CT LUNG SURVEILLANCE PROGRAM. SHOW IMAGING PROBABLE RIGHT ADRENAL ADENOMA. IF CLINICAL CONCERN WARRANTS, CT ABDOMEN MAY BE OBTAINED FOR FURTHER EVALUATION. CT IMAGING OF THE CHEST WITHOUT INTRAVENOUS CONTRAST MEDIUM. HISTORY: LUNG NODULE/NODULES IDENTIFIED ON CHEST RADIOGRAPH 6 MONTHS AGO. POSITIVE SMOKING HISTORY. TECHNICAL FACTORS: CT imaging of the chest was obtained and formatted as 5.0 mm contiguous axial images from the thoracic inlet through the adrenal glands. Sagittal and coronal reconstructions obtained during postprocessing. Intravenous contrast medium: None. Comparison: None FINDINGS: Right lun.3 mm noncalcified nodule pleural-based nodule, right upper lobe (series 5, image 33). No consolidation, pleural effusion, pneumothorax. Emphysema. Left lung: No nodules, masses, consolidation, pleural effusion, pneumothorax. Scarring versus subsegmental atelectatic change, lingula. Emphysema. Lymph nodes: No hilar, mediastinal, or axillary lymph node enlargement. Thoracic aorta: Normal in course and caliber. Cardiac Size: Normal. Pericardial effusion: None. Report Upper abdomen:Limited imaging upper abdomen shows partially imaged noncalcified 1.7 cm right adrenal nodule, with Hounsfield measurement -8.0. Musculoskeletal:No osteoblastic, and no osteolytic lesions. Fleischner Society 2017 Guidelines for Management of Incidentally Detected Pulmonary Nodules in Adults A: Solid Nodules* Single Low risk <6 mm No routine follow-up 6-[address] at 6-12 months, then consider CT at 18-24 months >[address] at 3 months, PET/CT, or tissue sampling Nodules <6 mm do not require routine follow-up, but certain patients at high risk with suspicious nodule morphology, upper lobe location, or both may warrant 12-month follow-up (recommendation 1A). High risk <[address] at 12 months 6-[address] at 6-12 months, then CT at 18-24 months >[address] at 3 months, PET/CT, or tissue sampling Nodules <6 mm do not require routine follow-up, but certain patients at high risk with suspicious nodule morphology, upper lobe location, or both may warrant 12-month follow-up (recommendation 1A). Multiple Low risk <6 mm No routine follow-up 6-[address] at 3-6 months, then consider CT at 18-24 months >[address] at 3-6 months, then consider CT at 18-24 months Use most suspicious nodule as guide to management. Follow-up intervals may vary according to size and risk (recommendation 2A). High risk <[address] at 12 months 6-[address] at 3-6 months, then at 18-24 months >[address] at 3-6 months, then at 18-24 months Use most suspicious nodule as guide to management. Follow-up intervals may vary according to size and risk (recommendation 2A). B: Subsolid Nodules* Single Ground glass <6 mm No routine follow-up >=[address] at 6-12 months to confirm persistence, then CT every 2 years until 5 years In certain suspicious nodules <6 mm, consider follow-up at 2 and 4 years. If solid component(s) or growth develops, consider resection. (Recommendations 3A and 4A). Part solid <6 mm No routine follow-up >=[address] at 3-6 months to confirm persistence. If unchanged and Report solid component remains <6 mm, annual CT should be performed for 5 years. In practice, part-solid nodules cannot be defined as such until >=6 mm, and nodules <6 mm do not usually require follow-up. Persistent part-solid nodules with solid components >=6 mm should be considered highly suspicious (recommendations 4A-4C) Multiple <[address] at 3-6 months. If stable, consider CT at 2 and 4 years. >=[address] at 3-6 months. Subsequent management based on the most suspicious nodule(s). Multiple <6 mm pure ground-glass nodules are usually benign, but consider follow-up in selected patients at high risk at 2 and 4 years (recommendation 5A). Note.--These recommendations do not apply to lung cancer screening, patients with immunosuppression, or patients with known primary cancer. * Dimensions are average of long and short axes, rounded to the nearest millimeter. Consider all relevant risk factors (see Risk Factors). All CT scans at this facility use dose modulation, iterative reconstruction, and/or weight based dosing when appropriate to reduce radiation dose to as low as reasonably achievable. Ordering Provider: Jose Adhikari FINAL REPORT Dictated: 01/13/2025 12:16 pm SignYakov vasquez MD Signed (Electronic Signature): 01/13/2025 12:16 pm (more content not included)... [facility] Ambulatory Visit Summaryon 0 10-27-2024 Ambulatory Visit Summary Ambulatory Visit Summary AMISHA BLACK :1975 Visit Date:10/27/2024 Ambulatory Visit Instructions Your Diagnosis HTN (hypertension) COPD without exacerbation Smoker BMI 32.0-32.9,adult, Body mass index [BMI] 32.0-32.9, adult Class 1 obesity due to excess calories with body mass index (BMI) of 32.0 to 32.9 in adult Other obesity due to excess calories Your Care Team Attending Physician - CAROLYN TAMAYO CNP Primary Care Physician - CAROLYN TAMAYO CNP This Is Your Medications List amlodipine (amLODIPine 10 mg Tab) atorvastatin (atorvastatin 20 mg Tab) losartan (losartan 100 mg Tab) omeprazole (omeprazole 40 mg Cap-DR) Contact prescribing physician if questions or concerns nicotine (nicotine 21 mg/24 hr Transderm ER Film) [Image Removed: STOP]Stop taking these medications nicotine (nicotine 14 mg/24 hr Transderm ER Film) Procedures Performed Hysterectomy. Discharge Vitals Temperature (Oral) 36.4 ???C Heart Rate (Peripheral) 86 Respiratory Rate 18 Blood Pressure 138/86 Height 169.0 cm Height 67 in Weight 93.0 kg Weight 205.03 lb BMI 32.56 What to do next Scheduled Follow-Up Appointments Friday 11:00 AM EDT With: CAROLYN TAMAYO CNP Where: [facility] [place] [id number]- Medications What How Much When Why Instructions Unchanged amlodipine (amLODIPine 10 mg Tab) 1 Tablets By Mouth Every day Pickup at [facility] Unchanged atorvastatin (atorvastatin 20 mg Tab) 1 Tablets By Mouth Every day Smoker High blood cholesterol Pickup at [facility] Unchanged losartan (losartan 100 mg Tab) 1 Tablets By Mouth Every day HTN (hypertension) Pickup at [facility] Unchanged omeprazole (omeprazole 40 mg Cap-DR) 1 Capsules By Mouth Every day Pickup at [facility] Unchanged nicotine (nicotine 21 mg/ 24 hr Transderm ER Film) 14 patch(es), 0 Refill(s) Contact prescribing physician if questions or concerns Pharmacy Information [facility]: [address] [place], [place] [id number] [phone] What When Comments Stop Taking nicotine (nicotine 14 mg/ 24 hr Transderm ER Film) 14 patch(es), 0 Refill(s) Allergies No Known Medication Allergies Problems Ongoing - Any problem that you are currently receiving treatment for. COPD without exacerbation HTN (hypertension) Pulmonary nodule Patient Survey You may receive a survey via text or e-mail asking about your office visit. Please share your experience with us by completing your survey. We appreciate your feedback and thank you for choosing us for your care. [facility] Family Medicine Office/Clini c Noteon 10-27-2024 Family Medicine Office/Clinic Note Family Medicine Office/Clinic Note Chief Complaint Concern regarding medication refills and elevated blood pressure. HPI Staff Amisha is a 49 year old female presenting with 6 month f/u Patient is here for follow up on hypertension. How often are you checking your blood pressure? occasionally at work What are your average readings? 130/90 Yearly BMP: Mar 02 2024 I have reviewed and verified the staff HPI to be accurate for this encounter. History of Present Illness 49 year old female presenting with concerns about medication refills and blood pressure elevation amidst a background of chronic health issues such as Chronic Obstructive Pulmonary Disease (COPD) without recent exacerbations and class 1 obesity related to excess caloric intake. These conditions contribute to the patient's overall health management challenges, particularly in the context of nicotine dependence, complicating both COPD and hypertensive states. The patient's hypertension management was discussed, with a recent conversation around several medication refills, indicating that refills are not currently needed yet. Her social situation involving a recent conflict requiring police intervention exacerbates her stress levels, which could be impacting her blood pressure today in the office. She experiences additional stress from familial interactions, possibly contributing to her health conditions. The patient continues to actively manage these sociocultural stressors alongside her medical conditions. Review of Systems PHQ Score Initial Depression Screen Score: 0 SCORE Constitutional: no fever, no chills, no sweats, no weakness Respiratory: no shortness of breath, no cough, no orthopnea, no wheezing Cardiovascular: no chest pain, no palpitations, no edema Additional ROS info: Except as noted in the above Review of Systems and in the History of Present Illness all other systems have been reviewed and are negative or noncontributory. Physical Exam Vitals & Measurements T: 36.4 ???C(Oral) HR: 86(Peripheral) RR: 18 BP: 138/86 SpO2: 97% HT: 67 in HT: 169.0 cm WT: 93.0 kg WT: 205.03 lb BMI: 32.56 General: alert, no acute distress Cardiovascular: regular rate and rhythm, normal peripheral perfusion; no edema Respiratory: Lungs CTA, respirations non labored Extremities: no deformity, no trauma Neurological: oriented x 4, LOC appropriate for age speech normal Assessment/Plan 1. HTN (hypertension) (I10: Essential (primary) hypertension) - Suggested home blood pressure monitoring due to stress-related elevation and discussed management strategies. - Encouraged low sodium diet & daily exercise - Laboratory testing at next visit - f/u in 6 months Ordered: losartan, 100 mg = 1 tab(s), Oral, Daily, # 180 tab(s), Refills(s) 0, Pharmacy: [facility], 169, cm, 06/21/24 11:53:00 EST, Height/Length Dosing, 91.9, kg, 06/21/24 11:53:00 EST, Weight Dosing 2. COPD without exacerbation (J44.9: Chronic obstructive pulmonary disease, unspecified) - Recommended continued monitoring of respiratory symptoms and reinforced efforts to cease smoking. - Encouraged to f/u with Dr. Adhikari - Patient should stop smoking 3. Smoker (F17.200: Nicotine dependence, unspecified, uncomplicated) - Discussed support strategies for smoking cessation, including nicotine replacement therapies. Ordered: atorvastatin, 20 mg = 1 tab(s), Oral, Daily, # 90 tab(s), Refills(s) 0, Pharmacy: [facility], 169, cm, 06/21/24 11:53:00 EST, Height/Length Dosing, 91.9, kg, 06/21/24 11:53:00 EST, Weight Dosing 4. BMI 32.0-32.9,adult, (Z68.32: Body mass index [BMI] 32.0-32.9, adult)Body mass index [BMI] 32.0-32.9, adult - Emphasis on lifestyle modifications for obesity management, focusing on balanced dietary and exercise plans. 5. Class 1 obesity due to excess calories with body mass index (BMI) of 32.0 to 32.9 in adult (E66.811: Obesity, class 1) The standard range for ages 18 and older is >=18.5 and < 25 kg/m2. Your BMI today was above this range, this falls in the overweight to obese category and there are medical benefits to weight loss. We can offer counselling, referral, and/or medical support in addressing this problem. Your BMI and weight management will be followed at subsequent visits. Other obesity due to excess calories (E66.09: Other obesity due to excess calories) The standard range for ages 18 and older is >=18.5 and < 25 kg/m2. Your BMI today was above this range, this falls in the overweight to obese category and there are medical benefits to weight loss. We can offer counselling, referral, and/or medical support in addressing this problem. Your BMI and weight management will be followed at subsequent visits. Orders: amlodipine, 10 mg = 1 tab(s), Oral, Daily, # 180 tab(s), Refills(s) 0, Pharmacy: [facility], 169, cm, 06/21/24 11:53:00 EST, Height/Length Dosing, 91.9, kg, 06/21/24 11:53:00 EST, Weight Dosing fluticasone nasal, 1 spray(s), Nasal, Da (more content not included)... [facility] Comment on above: Result Comment: Elec tronically Signed By: CAROLYN TAMAYO CNP\.br\Date and Time Signed: 10/27/24 12:32 EDT XR PELVIS 1 OR 2 VWSon 07-05 XR PELVIS 1 OR 2 VWS XR PELVIS 1 OR 2 VW S CLINICAL INFORMATION: fall, bruising TECHNIQUE: XR PELVIS 1 OR 2 VWS Single view of the pelvis was obtained. Pelvic ring appears intact. Femoral necks symmetric. No acute fracture identified. IMPRESSION: Negative exam. Finalized by Richie Louie MD on 07/05/2024 3:43 PM Normal [facility] XR SACRUM COCCYX MIN 2 VWSon 07-05-2024 XR SACRUM COCCYX MIN 2 VWS XR SACRUM COCCYX MIN 2 VWS HISTORY: A 48-year-old female with the history of fall one week ago. Complaining of pain and bruising overlying the coccyx. TECHNIQUE: Sacrococcygeal spine: 3 views COMPARISON: Comparison is made with the sacrococcygeal spine of 08/20/2012. FINDINGS: There is no evidence of fracture or acute bony pathology. No evidence of displacement of the coccygeal segment. Both sacroiliac joints are intact. Both ischio-pubic rami are intact. Both hip joints are intact. IMPRESSION: * No evidence of fracture or acute bony pathology in the sacrococcygeal spine. Finalized by Dallin Shannon MD on 07/05/2024 3:44 PM Normal [facility] Ambulatory Visit Summaryon 1 08-22-2023 Ambulatory Visit Summary Ambulatory Visit Summary BLACKAMISHA :1975 Visit Date:06/21/2024 Ambulatory Visit Instructions Your Diagnosis Smoker BMI 32.0-32.9,adult Exogenous obesity Your Care Team Attending Physician - CAROLYN TAMAYO CNP Primary Care Physician - CAROLYN TAMAYO CNP This Is Your Medications List amlodipine (amLODIPine 10 mg Tab) atorvastatin (atorvastatin 20 mg Tab) losartan (losartan 100 mg Tab) nicotine (nicotine 14 mg/24 hr Transderm ER Film) nicotine (nicotine 21 mg/24 hr Transderm ER Film) omeprazole (omeprazole 40 mg Cap-DR) Procedures Performed Hysterectomy. Discharge Vitals Temperature (Oral) 36.4 ???C Heart Rate (Peripheral) 90 Respiratory Rate 20 Blood Pressure 124/82 Height 169.0 cm Height 67 in Weight 91.9 kg Weight 202.605 lb BMI 32.18 What to do next Scheduled Follow-Up Appointments Friday 10:00 AM EDT With: CAROLYN TAMAYO CNP Where: [address] [id number]- Medications What How Much When Why Instructions Unchanged amlodipine (amLODIPine 10 mg Tab) 1 Tablets By Mouth Every day Unchanged atorvastatin (atorvastatin 20 mg Tab) 1 Tablets By Mouth Every day Smoker High blood cholesterol Unchanged losartan (losartan 100 mg Tab) 1 Tablets By Mouth Every day HTN (hypertension) Duration: 180 Days Unchanged nicotine (nicotine 14 mg/ 24 hr Transderm ER Film) 14 patch(es), 0 Refill(s) Unchanged nicotine (nicotine 21 mg/ 24 hr Transderm ER Film) 14 patch(es), 0 Refill(s) Unchanged omeprazole (omeprazole 40 mg Cap-DR) 1 Capsules By Mouth Every day Allergies No Known Medication Allergies Problems Ongoing - Any problem that you are currently receiving treatment for. COPD without exacerbation HTN (hypertension) Pulmonary nodule Patient Survey You may receive a survey via text or e-mail asking about your office visit. Please share your experience with us by completing your survey. We appreciate your feedback and thank you for choosing us for your care. [facility] Family Medicine Office/Clini c Noteon 06-21-2024 Family Medicine Office/Clinic Note Family Medicine Office/Clinic Note [facility] Staff Amisha is a 48 year old female presenting with dry mouth and cough Onset: Started awhile ago Tried: nothing She gets a tickle in her throat and it won't go away History of Present Illness Patient presents today for evaluation of dry mouth and cough x several weeks. She was seen by pulmonology in May 2024 and had PFT's ordered. She reports she still smokes and she has the patches at home but has not attempted to use them. She states her made her come today because she coughs and he does not feel this is normal. Review of Systems PHQ Score Initial Depression Screen Score: 0 SCORE Physical Exam Vitals & Measurements T: 36.4 ???C(Oral) HR: 90(Peripheral) RR: 20 BP: 124/82 SpO2: 96% HT: 67 in HT: 169.0 cm WT: 91.9 kg WT: 202.605 lb BMI: 32.18 General: alert, no acute distress ENMT: TM's , oral mucosa moist, no pharyngeal erythema or exudate Cardiovascular: regular rate and rhythm, normal peripheral perfusion Respiratory: Lungs CTA, respirations non labored Extremities: no deformity, no trauma Neurological: oriented x 4, LOC appropriate for age speech normal Assessment/Plan 1. 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 Smoker (F17.200: Nicotine dependence, unspecified, uncomplicated) We strongly recommend to quit tobacco use. Cigarette smoking harms nearly every organ of the body, causes many diseases, and reduces the health of smokers in general. Quitting smoking lowers your risk for smoking-related diseases and can add years to your life. We encourage you to visit www.smokefree.gov access to helpful resources including free telephone support. If you decide on prescription treatment to help you quit, we would be happy to provide these. Encouraged patient to start the nicotine patches previously prescribed Ordered: Tobacco use cessation intervention, counseling 4000F 3. BMI 32.0-32.9,adult (Z68.32: Body mass index [BMI] 32.0-32.9, adult) The standard range for ages 18 and older is >=18.5 and < 25 kg/m2. Your BMI today was above this range, this falls in the overweight to obese category and there are medical benefits to weight loss. We can offer counselling, referral, and/or medical support in addressing this problem. Your BMI and weight management will be followed at subsequent visits. 4. Exogenous obesity (E66.09: Other obesity due to excess calories) The standard range for ages 18 and older is >=18.5 and < 25 kg/m2. Your BMI today was above this range, this falls in the overweight to obese category and there are medical benefits to weight loss. We can offer counselling, referral, and/or medical support in addressing this problem. Your BMI and weight management will be followed at subsequent visits. Follow-up No qualifying data available Patient Education Cough, Adult, [id number] Problem List/Past Medical History Ongoing COPD without exacerbation HTN (hypertension) Pulmonary nodule Historical No qualifying data Procedure/Surgical History Hysterectomy. Medications amLODIPine 10 mg Tab, 10 mg= 1 tab(s), Oral, Daily atorvastatin 20 mg Tab, 20 mg= 1 tab(s), Oral, Daily, 2 refills Flonase 0.05 mg/inh [place], 1 spray(s), Nasal, Daily, 1 refills losartan 100 mg Tab, 100 mg= 1 tab(s), Oral, Daily nicotine 14 mg/24 hr Transderm ER Film nicotine 21 mg/24 hr Transderm ER Film omeprazole 40 mg Cap-DR, 40 mg= 1 cap(s), Oral, Daily, 1 refills Allergies No Known Medication Allergies Social History Substance Abuse Never., 05/19/2024 Tobacco 10 or more cigarettes (1/2 pack or more)/day in last 30 days Tobacco Use:., 06/21/2024 Immunizations Vaccine Date Status SARS-CoV-2 (COVID-19) mRNA BNT-162b2 vax 02/26/2022 Recorded [facility] Comment on above: Result Comment: Elec tronically Signed By: RONI DARLING, CAROLYN Velasquez\.br\Date and Time Signed: 06/21/24 13:10 EST Family Medicine Office/Clini c Noteon 05-20-2024 Family Medicine Office/Clinic Note Family Medicine Office/Clinic Note HPI Staff Amisha is a 48 year old female presenting with Onset: started last week over the weekend Location: right leg, up near groin Duration: Characteristics: painful, lump, uncomfortable but can be painful if touched or pressure on it Aggravated by: when she showers or washes and when it's touched and sometimes position aggravates it Relieved by: nothing Timing:_ Associated Symptoms:none I have reviewed and verified the staff HPI to be accurate for this encounter. History of Present Illness Patient presents today for evaluation of painful lump in the right upper thigh. She reports she found the area when she was showering the other day. She states the area is tender when she pushes on it. She denies any injury to the area and she denies a fever. She reports the pain is intermittent and she has not taken anything for the pain. Review of Systems PHQ Score Initial Depression Screen Score: 0 SCORE Constitutional: no fever, no chills, no sweats, no weakness Skin: no Jaundice, no rash, no lesions, nopetechiae Respiratory: no shortness of breath, no cough, no orthopnea, no wheezing Cardiovascular: no chest pain, no palpitations, no edema Musculoskeletal: no back pain, no trauma Neurologic: no headache, no dizziness, no numbness, no weakness Additional ROS info: Except as noted in the above Review of Systems and in the History of Present Illness all other systems have been reviewed and are negative or noncontributory. Physical Exam Vitals & Measurements T: 36.7 ???C(Oral) HR: 88(Peripheral) RR: 16 BP: 132/80 SpO2: 97% HT: 67 in HT: 169 cm WT: 89.7 kg WT: 197.34 lb BMI: 31.41 General: alert, no acute distress Cardiovascular: regular rate and rhythm, normal peripheral perfusion Respiratory: Lungs CTA, respirations non labored Extremities: no deformity, no trauma; right inguinal area- deep, small, mass Neurological: oriented x 4, LOC appropriate for age speech normal Assessment/Plan 1. Leg pain, right (M79.604: Pain in right leg) Discussed with patient hernia vs lymphadenopathy Awaiting US results Ordered: US Extremity Non-Vascular Limited Right 2. BMI 31.0-31.9,adult (Z68.31: Body mass index [BMI] 31.0-31.9, adult) The standard range for ages 18 and older is >=18.5 and < 25 kg/m2. Your BMI today was above this range, this falls in the overweight to obese category and there are medical benefits to weight loss. We can offer counselling, referral, and/or medical support in addressing this problem. Your BMI and weight management will be followed at subsequent visits. 3. Exogenous obesity (E66.09: Other obesity due to excess calories) The standard range for ages 18 and older is >=18.5 and < 25 kg/m2. Your BMI today was above this range, this falls in the overweight to obese category and there are medical benefits to weight loss. We can offer counselling, referral, and/or medical support in addressing this problem. Your BMI and weight management will be followed at subsequent visits. 4. Smoker (F17.200: Nicotine dependence, unspecified, uncomplicated) We strongly recommend to quit tobacco use. Cigarette smoking harms nearly every organ of the body, causes many diseases, and reduces the health of smokers in general. Quitting smoking lowers your risk for smoking-related diseases and can add years to your life. We encourage you to visit www.smokefree.gov access to helpful resources including free telephone support. If you decide on prescription treatment to help you quit, we would be happy to provide these. Follow-up No qualifying data available Patient Education Pain Without a Known Cause Problem List/Past Medical History Ongoing COPD without exacerbation HTN (hypertension) Pulmonary nodule Historical No qualifying data Procedure/Surgical History Hysterectomy. Medications amLODIPine 10 mg Tab, 10 mg= 1 tab(s), Oral, Daily atorvastatin 20 mg Tab, 20 mg= 1 tab(s), Oral, Daily, 2 refills losartan 100 mg Tab, 100 mg= 1 tab(s), Oral, Daily nicotine 14 mg/24 hr Transderm ER Film, Not taking nicotine 21 mg/24 hr Transderm ER Film, Not taking omeprazole 40 mg Cap-DR, 40 mg= 1 cap(s), Oral, Daily, 1 refills Allergies No Known Medication Allergies Social History Substance Abuse Never., 05/19/2024 Tobacco 10 or more cigarettes (1/2 pack or more)/day in last 30 days Tobacco Use:., 05/19/2024 Immunizations Vaccine Date Status SARS-CoV-2 (COVID-19) mRNA BNT-162b2 vax 02/26/2022 Recorded Total time spent preparing the chart, conducting of the encounter with the patient and family and time spent documenting, reviewing, and ordering tests was 25 minutes. [facility] Comment on above: Result Comment: Elec tronically Signed By: CAROLYN TAMAYO CNP\.julio\Date and Time Signed: 05/20/24 15:31 EST Ambulatory Visit Summaryon 1 07-19-2023 Ambulatory Visit Summary Ambulatory Visit Summary AMISHA BLACK :1975 Visit Date:05/19/2024 Ambulatory Visit Instructions Your Diagnosis Leg pain, right BMI 31.0-31.9,adult Exogenous obesity Smoker Your Care Team Attending Physician - CAROLYN TAMAYO CNP Primary Care Physician - CAROLYN TAMAYO CNP This Is Your Medications List amlodipine (amLODIPine 10 mg Tab) atorvastatin (atorvastatin 20 mg Tab) losartan (losartan 100 mg Tab) nicotine (nicotine 14 mg/24 hr Transderm ER Film) nicotine (nicotine 21 mg/24 hr Transderm ER Film) omeprazole (omeprazole 40 mg Cap-DR) Procedures Performed Hysterectomy. Discharge Vitals Temperature (Oral) 36.7 ???C Heart Rate (Peripheral) 88 Respiratory Rate 16 Blood Pressure 132/80 Height 169 cm Height 67 in Weight 89.7 kg Weight 197.34 lb BMI 31.41 What to do next Scheduled Follow-Up Appointments Friday 10:00 AM EDT With: CAROLYN TAMAYO CNP Where: [place] [id number]- Medications What How Much When Why Instructions Unchanged amlodipine (amLODIPine 10 mg Tab) 1 Tablets By Mouth Every day Unchanged atorvastatin (atorvastatin 20 mg Tab) 1 Tablets By Mouth Every day Smoker High blood cholesterol Unchanged losartan (losartan 100 mg Tab) 1 Tablets By Mouth Every day HTN (hypertension) Duration: 180 Days Unchanged nicotine (nicotine 14 mg/ 24 hr Transderm ER Film) 14 patch(es), 0 Refill(s) Unchanged nicotine (nicotine 21 mg/ 24 hr Transderm ER Film) 14 patch(es), 0 Refill(s) Unchanged omeprazole (omeprazole 40 mg Cap-DR) 1 Capsules By Mouth Every day Allergies No Known Medication Allergies Problems Ongoing - Any problem that you are currently receiving treatment for. COPD without exacerbation HTN (hypertension) Pulmonary nodule Patient Survey You may receive a survey via text or e-mail asking about your office visit. Please share your experience with us by completing your survey. We appreciate your feedback and thank you for choosing us for your care. [facility] Pulmonary Function Studieson 05-19-2024 Pulmonary Function Studies Pulmonary Function Studies PULMONARY FUNCTION TEST: 05/05/2024 REFERRING PHYSICIAN: Jose Adhikari M.D.; ZACK Meza REASON FOR TESTING: This is [age]-year-old female with history of smoking half pack a day for 30 years. Pulmonary function test is performed to evaluate for chronic obstructive pulmonary disease. Spirometry shows normal FEV1 at 88% predicted. Forced vital capacity is normal at 98% predicted. FEV1/forced vital capacity ratio is normal at 73%. After administration of bronchodilator there is significant improvement in FEV1 by 11% and improvement in peak expiratory flow by 17% and small airway FEF 25-75% by 22%. Lung volume testing shows normal total lung capacity at 97% predicted. Residual volume is increased at 125% predicted. RV/total lung capacity ratio is normal at 55%. The lung diffusion capacity is normal at 83% predicted. IMPRESSION: Spirometry is normal. There is significant response to bronchodilators. Lung volume testing shows borderline air trapping. The lung diffusion capacity is normal. READ BY: Zita Nugent M.D. ca Dictated: 05/16/2024 [id number] Transcribed: 05/17/2024 cc:Sal Chavarria APRN-CNP [facility] Comment on above: Result Comment: Elec tronically Signed By: Zita Nugent MD\.br\Date and Time Signed: 05/19/24 09:13 EST Ambulatory Visit Summaryon 1 Ambulatory Visit Summary Ambulatory Visit Summary AMISHA BLACK Ger :1975 Visit Date:04/21/2024 Ambulatory Visit Instructions Your Diagnosis HTN (hypertension) Smoker BMI 30.0-30.9,adult Exogenous obesity Your Care Team Attending Physician - CAROLYN TAMAYO CNP Primary Care Physician - CAROLYN TAMAYO CNP This Is Your Medications List albuterol (Albuterol (Eqv-ProAir HFA) 90 mcg/inh inhalation aerosol) amlodipine (amLODIPine 10 mg Tab) ascorbic acid (ascorbic acid 500 mg oral capsule) atorvastatin (atorvastatin 20 mg Tab) ferrous sulfate (ferrous sulfate 325 mg Tab) ibuprofen (ibuprofen 800 mg Tab) losartan (losartan 100 mg Tab) megestrol (megestrol 20 mg Tab) omeprazole (omeprazole 40 mg Cap-DR) Procedures Performed Hysterectomy. Discharge Vitals Temperature (Oral) 36.6 ?C Heart Rate (Peripheral) 86 Respiratory Rate 20 Blood Pressure 128/84 Height 169.3 cm Height 67 in Weight 88.7 kg Weight 195.14 lb BMI 30.95 What to do next Scheduled Follow-Up Appointments Friday 11:00 AM EDT With: Jose Adhikari MD Where: [facility] Friday 10:00 AM EDT With: CAROLYN TAMAYO CNP Where: [facility] [place] [id number]- Medications What How Much When Why Instructions Unchanged albuterol (Albuterol (Eqv-ProAir HFA) 90 mcg/ inh inhalation aerosol) 2 Puffs Inhalation Every 6 hours Cough Smoker Unchanged amlodipine (amLODIPine 10 mg Tab) 1 Tablets By Mouth Every day Unchanged ascorbic acid (ascorbic acid 500 mg oral capsule) Oral, 0 Refill(s) Unchanged atorvastatin (atorvastatin 20 mg Tab) 1 Tablets By Mouth Every day Smoker High blood cholesterol Unchanged ferrous sulfate (ferrous sulfate 325 mg Tab) 325 Unknown, Oral, 0 Refill(s) Unchanged ibuprofen (ibuprofen 800 mg Tab) 800 Unknown, Oral, 0 Refill(s) Unchanged losartan (losartan 100 mg Tab) 1 Tablets By Mouth Every day HTN (hypertension) Unchanged megestrol (megestrol 20 mg Tab) 20 Unknown, Oral, 0 Refill(s) Unchanged omeprazole (omeprazole 40 mg Cap-DR) Allergies No Known Medication Allergies Problems Ongoing - Any problem that you are currently receiving treatment for. HTN (hypertension) Patient Survey You may receive a survey via text or e-mail asking about your office visit. Please share your experience with us by completing your survey. We appreciate your feedback and thank you for choosing us for your care. [facility] Family Medicine Office/Clini c Noteon 04-21-2024 Family Medicine Office/Clinic Note Family Medicine Office/Clinic Note HPI Staff Amisha is a 48 year old female presenting with 4 week f/u Patient is here for follow up on hypertension. How often are you checking your blood pressure? _ only checked this a couple times at work What are your average readings? _ Yearly BMP: _ Referral placed for Pulmonology for recent CT of lung... (Has appt. scheduled today) with Adhikari PEE started nicotine patches 21 mcg- Has not started these yet, she is trying to get her mind set History of Present Illness Patient presents today in f/u for known HTN. She denies dizziness, headache. vision changes, chest pain, or heart palpitations. Her blood pressure was 128/84 today in the office. She denies missing any doses of her medication. Patient continues to smoke cigarettes and states she has to get in the right space for smoking cessation. She does have the patches at home but has not started using them. She does have an appointment with the circus performer later this AM. Review of Systems PHQ Score Initial Depression Screen Score: 0 SCORE Constitutional: no fever, no chills, no sweats, no weakness Respiratory: no shortness of breath, no cough, no orthopnea, no wheezing Cardiovascular: no chest pain, no palpitations, no edema Additional ROS info: Except as noted in the above Review of Systems and in the History of Present Illness all other systems have been reviewed and are negative or noncontributory. Physical Exam Vitals & Measurements T: 36.6 ?C(Oral) HR: 86(Peripheral) RR: 20 BP: 128/84 SpO2: 97% HT: 67 in HT: 169.3 cm WT: 88.7 kg WT: 195.14 lb BMI: 30.95 General: alert, no acute distress ENMT: TM's clear, oral mucosa moist, no pharyngeal erythema or exudate Cardiovascular: regular rate and rhythm, normal peripheral perfusion Respiratory: Lungs CTA, respirations non labored Extremities: no deformity, no trauma Neurological: oriented x 4, LOC appropriate for age speech normal Assessment/Plan 1. HTN (hypertension) (I10: Essential (primary) hypertension) Controlled Stable Encouraged to continue amlodipine 10 mg one tablet daily Losartan 100 mg one tablet po daily - refilled at this visit f/u in 6 months Ordered: losartan, 100 mg = 1 tab(s), Oral, Daily, X 180 day(s), # 180 tab(s), Refills(s) 0, Pharmacy: [facility], 169.3, cm, 04/21/24 9:14:00 EDT, Height/Length Dosing, 88.7, kg, 04/21/24 9:14:00 EDT, Weight Dosing 2. Smoker (F17.200: Nicotine dependence, unspecified, uncomplicated) We strongly recommend to quit tobacco use. Cigarette smoking harms nearly every organ of the body, causes many diseases, and reduces the health of smokers in general. Quitting smoking lowers your risk for smoking-related diseases and can add years to your life. We encourage you to visit www.smokefree.gov access to helpful resources including free telephone support. If you decide on prescription treatment to help you quit, we would be happy to provide these. 3. BMI 30.0-30.9,adult (Z68.30: Body mass index [BMI] 30.0-30.9, adult) The standard range for ages 18 and older is >=18.5 and < 25 kg/m2. Your BMI today was above this range, this falls in the overweight to obese category and there are medical benefits to weight loss. We can offer counselling, referral, and/or medical support in addressing this problem. Your BMI and weight management will be followed at subsequent visits. 4. Exogenous obesity (E66.09: Other obesity due to excess calories) The standard range for ages 18 and older is >=18.5 and < 25 kg/m2. Your BMI today was above this range, this falls in the overweight to obese category and there are medical benefits to weight loss. We can offer counselling, referral, and/or medical support in addressing this problem. Your BMI and weight management will be followed at subsequent visits. Orders: amlodipine, 10 mg = 1 tab(s), Oral, Daily, # 180 tab(s), Refills(s) 0, Pharmacy: [facility], 169.3, cm, 04/21/24 9:14:00 EDT, Height/Length Dosing, 88.7, kg, 04/21/24 9:14:00 EDT, Weight Dosing ferrous sulfate, 325 mg = 1 tab(s), Oral, Daily, 325 Unknown, Oral, 0 Refill(s), # 90 tab(s), Refills(s) 1, Pharmacy: [facility], 169.3, cm, 04/21/24 9:14:00 EDT, Height/Length Dosing, 88.7, kg, 04/21/24 9:14:00 EDT, Weight Dosing ibuprofen, See Instructions, 1 tab(s) Oral not to exceed 3200 mg/day, # 270 tab(s), Refills(s) 1, Pharmacy: [facility], 169.3, cm, 04/21/24 9:14:00 EDT, Height/Length Dosing, 88.7, kg, 04/21/24 9:14:00 EDT, Weight Dosing omeprazole, 40 mg = 1 cap(s), Oral, Daily, # 90 cap(s), Refills(s) 1, Pharmacy: [facility], 169.3, cm, 04/21/24 9:14:00 EDT, Height/Length Dosing, 88.7, kg, 04/21/24 9:14:00 EDT, Weight Dosing Follow-up With When Contact Information CAROLYN TAMAYO CNP, FAM Within 6 months [address] [place] [address] Business (1) Additional Instructions: HTN Patient Education Hypertension, Adult, [id number] Problem List/Pas (more content not included)... [facility] Comment on above: Result Comment: Elec tronically Signed By: CAROLYN TAMAYO CNP\.br\Date and Time Signed: 04/21/24 09:45 EDT Pulmonology Office/Clinic Ava zaldivar 04-21-2024 Pulmonology Office/Clinic Note Pulmonology Office/Clinic Note Chief Complaint Testing results History of Present Illness Here for evaluation for pulmonary nodules noted on a recent CT of the chest at [facility]. The patient reports that she was having significant respiratory issues and underwent a chest x-ray which was unremarkable. A CT of the chest was then performed which revealed bilateral pulmonary nodules and hence a pulmonary consultation was requested. The patient reports that she has been having intermittent respiratory issues and had multiple bouts of COVID over the past few years with worsening respiratory status. Currently she has mild shortness of breath, mostly with exertion but denies cough, sputum production, wheezing, chest pain or hemoptysis. She has albuterol at home that she uses occasionally with some help. Still actively smoking, but had cut down recently to 1\2-3\4 a day from [facility] and has been smoking for 30 years. Hs 2 dogs and one cat. 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 Her father of lung cancer. Review of Systems PHQ Score Initial Depression Screen Score: 0 SCORE Constitutional: no fever, no chills, no sweats, no weakness Skin: no Jaundice, no rash, no lesions, no petechiae ENT: no ear pain, no sore throat, no congestion, no hoarseness Respiratory: as per HPI Cardiovascular: no chest pain, no palpitations, no [...] or noncontributory. Physical Exam Vitals & Measurements HR: 85(Peripheral) BP: 148/100 SpO2: 99% HT: 67 in HT: 169 cm WT: 88 kg WT: 193.6 lb BMI: 30.81 General: Awake, alert, in no acute distress Skin: warm, dry Head: no trauma, normocephalic Neck: Trachea midline, no adenopathy, no tenderness Eye: normal conjunctiva, sclera clear ENMT: TM's clear, oral mucosa moist, no pharyngeal erythema or exudate Cardiovascular: regular rate and rhythm, normal peripheral perfusion Respiratory: Slightly decreased breath sounds to both lung kumar without wheezing or crackles. Gastrointestinal: soft, non distended, no tenderness, no guarding. Back: No tenderness, Normal ROM, Normal alignment. Extremities: no deformity, no trauma Neurological: oriented x 4, LOC appropriate for age, CN II-XII intact, motor strength equal & normal bilaterally, sensation equal & normal bilaterally, speech normal Psychiatric: cooperative, affect appropriate for age, normal judgement, normal psychiatric thoughts. Assessment/Plan 1. Pulmonary nodule (R91.1: Solitary pulmonary nodule) CT of the chest done at [facility] with evidence of multiple pulmonary nodules measuring 5 mm or less throughout both lung kumar with evidence of emphysematous changes. Differential diagnosis for the above nodules is broad including infectious, malignancy, metastatic disease, scarring among others. High risk patient given her significant prior smoking history. These are too small at this point to biopsy and too small for PET sensitivity. Given the above I will observe and repeat a CT scan of the chest in 3 to 6 months and reevaluate accordingly. Ordered: CT Chest w/o Contrast 2. COPD without exacerbation (J44.9: Chronic obstructive pulmonary disease, unspecified) Noted on her CT of the chest but no prior PFTs. Significant prior smoking history. Has albuterol at home that she uses intermittently with some help. I will obtain a full PFT. The patient was counseled on smoking cessation and the effects of smoking on her underlying lung function and overall health status. Ordered: Pulmonary Function Testing Follow-up With When Contact Information Jose Adhikari MD, PUL, LESLIE [address] [facility] [place] [address]- Additional Instructions: after his testing is completed Problem List/Past Medical History Ongoing COPD without exacerbation HTN (hypertension) Pulmonary nodule Historical No qualifying data Procedure/Surgical History Hysterectomy. Medications Albuterol (Eqv-ProAir HFA) 90 mcg/inh inhalation aerosol, 2 puff(s), Inhalation, q6hr, 2 refills amLODIPine 10 mg Tab, 10 mg= 1 tab(s), Oral, Daily ascorbic acid 500 mg oral capsule atorvastatin 20 mg Tab, 20 mg= 1 tab(s), Oral, Daily, 2 refills ferrous sulfate 325 mg Tab, 325 mg= (more content not included)... [facility] Comment on above: Result Comment: Elec tronically Signed By: Jose Adhikari MD\.br\Date and Time Signed: 04/21/24 12:00 EDT IGP,APTIMA HPV,AGE GDLNon AGE GDLN ACOG TESTING Note . [facility] Comment on above: TESTS RESULT FLAG UN ITS REF RANGE LAB Clinician Provided Cytology Information Source.............Vagina No. of containers..01 ThinPrep Vial Age Arturo REMY Emilia... FLAG LEGEND: L-Low Normal,H-High Normal,LL-Alert Low,HH-Alert High <-Panic Low,>-Panic High,A-Abnormal,AA-Critical Abnormal Performed at: 01 =[address] [address] Jinny Hansen MD, HPV APTIMA Negative Negative [facility] Comment on above: This nucleic acid am plification test detects fourteen high- risk HPV types (16,18,31,33,35,39,45,51,52,56,58,59,66,68) without differentiation. Performed at: =[address] [id number] Head Sulfide Operator: Jinny Hansen MD, Phone: [phone] Performed at: [address] [id number] Head Sulfide Operator: Jinny Hansen MD, Phone: [phone] IGP, APTIMA HPV, RFX 16/18,45 Note . [facility] Comment on above: TESTS RESULT FLAG UN ITS REF RANGE LAB DIAGNOSIS: 02 NEGATIVE FOR INTRAEPITHELIAL LESION OR MALIGNANCY. Specimen adequacy: 02 Satisfactory for evaluation. Performed by: 02 Marylu Neely, Chlorinator Operator (ASC) . 02 Note: Note 02 The Pap smear is a screening test designed to aid in the detection of premalignant and malignant conditions of the uterine cervix. It is not a diagnostic procedure and should not be used as the sole means of detecting cervical cancer. Both false-positive and false-negative reports do occur. Test Methodology: Note 02 This liquid based ThinPrep(R) pap test was screened with the use of an image guided system. HPV Genotype Reflex Note 02 Criteria not met, HPV Genotype not performed. FLAG LEGEND: L-Low Normal,H-High Normal,LL-Alert Low,HH-Alert High <-Panic Low,>-Panic High,A-Abnormal,AA-Critical Abnormal Performed at: [address] [address] Jinny Hansen MD, SPATULA-ALONE VAGINA [facility] EMG 2 Extremitieson 03-25-20 Very minimal bilaterally. [facility] NVC 9-10 Nerveson 03-25-2024 Very minimal bilaterally. [facility] Family Medicine Office/Clini c Noteon 03-24-2024 Family Medicine Office/Clinic Note Family Medicine Office/Clinic Note HPI Staff Amisha is a 48 year old female presenting with 2 week f/u Patient is here for follow up on hypertension. How often are you checking your blood pressure? _ no What are your average readings? _ Yearly BMP: _ March 02 2024 History of Present Illness Patient presents today with her in f/u for HTN. She reports she smoked a cigarette before she came in this morning that she worked a 12-hour shift yesterday. She is not sure if this is contributing to the high blood pressure reading. She denies dizziness, headache. vision changes, chest pain, or heart palpitations. Her blood pressure was rechecked today in the office and it remained elevated at 154/100. She denies missing any doses of her medication. Patient continues to smoke cigarettes and states she is interested in smoking cessation. Review of Systems PHQ Score Initial Depression Screen Score: 0 SCORE Constitutional: no fever, no chills, no sweats, no weakness Skin: no Jaundice, no rash, no lesions, nopetechiae ENMT: no ear pain, no sore throat, no congestion, no hoarseness Respiratory: no shortness of breath, no cough, no orthopnea, no wheezing Cardiovascular: no chest pain, no palpitations, no edema Musculoskeletal: no back pain, no trauma Neurologic: no headache, no dizziness, no numbness, no weakness Psychiatric: no sleeping problems, no irritability, no mood swings/depression. Additional ROS info: Except as noted in the above Review of Systems and in the History of Present Illness all other systems have been reviewed and are negative or noncontributory. Physical Exam Vitals & Measurements T: 36.8 ?C(Oral) HR: 70(Peripheral) RR: 18 BP: 154/100 SpO2: 96% HT: 67 in HT: 169.3 cm WT: 87.5 kg WT: 192.5 lb BMI: 30.53 General: alert, no acute distress Cardiovascular: regular rate and rhythm, normal peripheral perfusion Respiratory: Lungs CTA, respirations non labored Extremities: no deformity, no trauma Neurological: oriented x 4, LOC appropriate for age speech normal Assessment/Plan 1. HTN (hypertension) (I10: Essential (primary) hypertension) Uncontrolled Continue amlodipine 10 mg tablet daily Discontinue losartan 50 mg 1 tablet daily Start losartan 100 mg 1 tablet daily Encourage smoking cessation Encouraged daily exercise and low-sodium diet Follow-up in 4 weeks Ordered: losartan, 100 mg = 1 tab(s), Oral, Daily, # 30 tab(s), Refills(s) 0, Pharmacy: [facility] [id number], 169.3, cm, 03/24/24 7:54:00 EDT, Height/Length Dosing, 87.5, kg, 03/24/24 7:54:00 EDT, Weight Dosing 2. Multiple lung nodules on CT (R91.8: Other nonspecific abnormal finding of lung field) Discussed recent CT of the lung with the patient and her Referral placed for pulmonology Ordered: nicotine, = 1 patch(es), Topical, Daily, apply to skin on day 15 after using the 21 mg/24 patches, X 14 day(s), # 14 patch(es), Refills(s) 0, Pharmacy: [facility] [id number], 169.3, cm, 03/24/24 7:54:00 EDT, Height/Length Dosing, 87.5, kg, 03/24/24 7:54:00 E... [facility] [place] Referral 3. Smoker (F17.200: Nicotine dependence, unspecified, uncomplicated) Discussed smoking cessation with patient Start nicotine patches 21 mcg- apply one patch the the skin daily x 14 days Then nicotine patches 14 mcg- apply one patch Follow-up in 4 weeks Ordered: nicotine, = 1 patch(es), Topical, Daily, apply to skin on day 15 after using the 21 mg/24 patches, X 14 day(s), # 14 patch(es), Refills(s) 0, Pharmacy: [facility] [id number], 169.3, cm, 03/24/24 7:54:00 EDT, Height/Length Dosing, 87.5, kg, 03/24/24 7:54:00 E... nicotine, 1 patch(es), Topical, Daily for 14 day(s), 14 EA, Refill(s) 0, [facility] [id number], 169.3, cm, 03/24/24 7:54:00 EDT, Height/Length Dosing, 87.5, kg, 03/24/24 7:54:00 EDT, Weight Dosing Tobacco use cessation intervention, counseling 4000F Tobacco use cessation intervention, pharmacologic therapy 4001F 4. BMI 30.0-30.9,adult (Z68.30: Body mass index [BMI] 30.0-30.9, adult) The standard range for ages 18 and older is >=18.5 and < 25 kg/m2. Your BMI today was above this range, this falls in the overweight to obese category and there are medical benefits to weight loss. We can offer counselling, referral, and/or medical support in addressing this problem. Your BMI and weight management will be followed at subsequent visits. 5. Class 1 obesity due to excess calories in adult (E66.09: Other obesity due to excess calories) The standard range for ages 18 and older is >=18.5 and < 25 kg/m2. Your BMI today was above this range, this falls in the overweight to obese category and there are medical benefits to weight loss. We can offer counselling, referral, and/or medical support in addressing this problem. Your BMI and weight management will be followed at subsequent visits. Follow-up With When Contact Information CAROLYN TAMAYO CNP, CARLOS Within 4 weeks [address] [place] [address] (more content not included)... Normal [facility] Comment on above: Result Comment: Elec tronically Signed By: CAROLYN TAMAYO CNP\.br\Date and Time Signed: 03/24/24 14:05 EDT Ambulatory Visit Summaryon 0 03-02-2024 Ambulatory Visit Summary Ambulatory Visit Summary AMISHA BLACK :1975 Visit Date:03/02/2024 Ambulatory Visit Instructions [...] hours Cough Smoker Refills: 2 Pickup at [facility] [id number] New azithromycin (azithromycin 250 mg Tab) 1 Packets By Mouth As Directed Bilateral otitis media with effusion Cough Smoker Duration: 5 Days as directed on package labeling Pickup at [facility] [id number] New methylPREDNISolone (Medrol 4 mg Tab) 1 Packets By Mouth As Directed Bilateral otitis media with effusion Cough Smoker Duration: 6 Days as directed on package labeling Pickup at [facility] [id number] Unchanged amlodipine (amLODIPine 10 mg Tab) 1 Tablets By Mouth Every day Unchanged losartan (losartan 50 mg Tab) 1 Tablets By Mouth Every day Unchanged omeprazole (omeprazole 40 mg Cap-DR) Pharmacy Information [facility] [id number]: [address] [place], [place] [id number] [phone] Allergies No Known Medication Allergies Problems Ongoing - Any problem that you are currently receiving treatment for. HTN (hypertension) Patient Survey You may receive a survey via text or e-mail asking about your office visit. Please share your experience with us by completing your survey. We appreciate your feedback and thank you for choosing us for your care. Normal [facility] CBC w/ Auto Diffon 4 Basophils/100 WBC (Bld) 0.4 % Normal 0.0-2.0 [facility] Comment on above: Performed By: #### 2 [id number] #### [facility] [address] [place] [address] Basophils/Leukocytes Auto (Bld) [Pure # fraction] 0.0 E9/L Normal 0.0-0.2 [facility] Comment on above: Performed By: #### 2 [id number] #### [facility] [address] [place] [address] Eosinophils (Bld) [#/Vol] 0.1 E9/L Normal 0.0-0.5 [facility] Comment on above: Performed By: #### 2 [id number] #### [facility] [address] [place] [address] Eosinophils/100 WBC (Bld) 1.2 % Normal 0.0-8.0 [facility] Comment on above: Performed By: #### 2 [id number] #### [facility] [address] [place] [address] Erythrocyte distribution width (RBC) [Ratio] 13.2 % Normal 10.9-14.2 [facility] Comment on above: Performed By: #### 2 [id number] #### [facility] [address] [place] [address] Hematocrit (Bld) [Volume fraction] 52.0 % High 34.0-46.0 [facility] Comment on above: Performed By: #### 2 [id number] #### [facility] [address] [place] [address] Hemoglobin (Bld) [Mass/Vol] 17.8 g/dL High 12.0-16.0 [facility] Comment on above: Performed By: #### 2 [id number] #### [facility] [address] [place] [address] Lymphocytes (Bld) [#/Vol] 2.3 E9/L Normal 1.0-4.0 [facility] Comment on above: Performed By: #### 2 [id number] #### [facility] [address] [place] [address] Lymphocytes/100 WBC (Bld) 26.7 % Normal 14.0-50.0 [facility] Comment on above: Performed By: #### 2 [id number] #### [facility] [address] [place] [address] MCH (RBC) [Entitic mass] 33.6 pg Normal 27.0-34.0 [facility] Comment on above: Performed By: #### 2 [id number] #### [facility] [address] [place] [address] MCHC (RBC) [Mass/Vol] 34.3 g/dL Normal 31.4-36.0 [facility] Comment on above: Performed By: #### 2 [id number] #### [facility] [address] [place] [address] MCV (RBC) [Entitic vol] 98.1 fL Normal 80.0-100.0 [facility] Comment on above: Performed By: #### 2 [id number] #### [facility] [address] [place] [address] Monocytes (Bld) [#/Vol] 0.6 E9/L Normal 0.2-1.0 [facility] Comment on above: Performed By: #### 2 [id number] #### [facility] [address] [place] [address] Neutrophils (Bld) [#/Vol] 5.6 E9/L Normal 2.0-7.5 [facility] Comment on above: Performed By: #### 2 [id number] #### [facility] [address] [place] [address] Neutrophils/100 WBC (Bld) 64.2 % Normal 36.0-75.0 [facility] Comment on above: Performed By: #### 2 538992 #### [facility] [address] [place] [address] Platelet mean volume (Bld) [Entitic vol] 9.4 fL Normal 6.4-10.8 [facility] Comment on above: Performed By: #### 2 [id number] #### [facility] [address] [place] [address] Platelets (Bld) [#/Vol] 309.0 E9/L Normal 150.0-500.0 [facility] Comment on above: Performed By: #### 2 131452 #### [facility] [address] [place] [address] RBC (Bld) [#/Vol] 5.3 E12/L Normal 4.3-5.9 [facility] Comment on above: Performed By: #### 2 224287 #### [facility] [address] [place] [address] WBC corrected for nucl RBC Auto (Bld) [#/Vol] 8.7 E9/L Normal 4.0-11.0 [facility] Comment on above: Performed By: #### 2 054907 #### [facility] [address] [place] [address] CHEMISTRYOrdered By: SYSTEM SYSTEM on 03-02-2024 Albumin [...] 03-02-2024 Albumin [Mass/Vol] 4.5 g/dL Normal 3.3-5.0 [facility] Comment on above: Performed By: #### 2 [id number] #### [facility] [address] [place] [address] Albumin/Globulin (S) [Mass conc ratio] 1.7 Normal 1.1-2.2 [facility] Comment on above: Performed By: #### 2 574065 #### [facility] [address] [place] [address] ALP [Catalytic activity/Vol] 86 Int._Unit/L Normal 21-98 [facility] Comment on above: Performed By: #### 2 [id number] #### [facility] [address] [place] [address] ALT No additional P-5'-P [Catalytic activity/Vol] 25 Int._Unit/L Normal 6-46 [facility] Comment on above: Performed By: #### 2 763808 #### [facility] [address] [place] [address] Anion gap [Moles/Vol] 15 mmol/L Normal 6-16 [facility] Comment on above: Performed By: #### 2 840158 #### [facility] [address] [place] [address] AST [Catalytic activity/Vol] 17 Int._Unit/L Normal 5-43 [facility] Comment on above: Performed By: #### 2 911837 #### [facility] [address] [place] [address] Bilirubin [Mass/Vol] 0.8 mg/dL Normal 0.0-1.1 [facility] Comment on above: Performed By: #### 2 933640 #### [facility] [address] [place] [address] Calcium [Mass/Vol] 9.7 mg/dL Normal 8.9-11.1 [facility] Comment on above: Performed By: #### 2 516602 #### [facility] [address] [place] [address] Chloride [Moles/Vol] 102 mmol/L Normal 101-111 [facility] Comment on above: Performed By: #### 2 010835 #### [facility] [address] [place] [address] CO2 [Moles/Vol] 25 mmol/L Normal 21-[address] [facility] Comment on above: Performed By: #### 2 765332 #### [facility] [address] [place] [address] Creatinine [Mass/Vol] 0.7 mg/dL Normal 0.5-1.3 [facility] Comment on above: Performed By: #### 2 366285 #### [facility] [address] [place] [address] Globulin (S) [Mass/Vol] 2.6 g/dL Normal 1.4-4.0 [facility] Comment on above: Performed By: #### 2 870771 #### [facility] [address] [place] [address] Glucose [Mass/Vol] 119 mg/dL Normal 55-199 [facility] Comment on above: Performed By: #### 2 091607 #### [facility] [address] [place] [address] Potassium [Moles/Vol] 3.8 mmol/L Normal 3.5-5.3 [facility] Comment on above: Performed By: #### 2 793406 #### [facility] [address] [place] [address] Protein [Mass/Vol] 7.1 g/dL Normal 6.0-7.8 [facility] Comment on above: Performed By: #### 2 078456 #### [facility] [address] [place] [address] Sodium [Moles/Vol] 138 mmol/L Normal 135-145 [facility] Comment on above: Performed By: #### 2 884517 #### [facility] [address] [place] [address] Urea nitrogen [Mass/Vol] 10 mg/dL Normal 5-21 [facility] Comment on above: Performed By: #### 2 561521 #### [facility] [address] [place] [address] Urea nitrogen/Creatinine [Mass ratio] 14 No Units Normal 10-20 [facility] Comment on above: Performed By: #### 2 [id number] #### [facility] [address] [place] [address] Family Medicine Office/Clini c Noteon 03-02-2024 Family Medicine Office/Clinic Note Family Medicine Office/Clinic Note HPI Staff Amisha is a 48 year old female presenting [...] day(s), # 6 tab(s), Refills(s) 0, Pharmacy: [facility] [id number], 169.3, cm, 03/02/24 11:06:00 EDT, Height/Length Dosing, 87.2, kg, 03/02/24 11:06:00 EDT, Weight Dosing methylPREDNISolone, = 1 packet(s), Oral, As Directed, as directed on package labeling, X 6 day(s), # 21 tab(s), Refills(s) 0, [facility] [id number], 169.3, cm, 03/02/24 11:06:00 EDT, Height/Length Dosing, 87.2, kg, 03/02/24 11:06:00 EDT, Weight Dosing CBC w/ Auto Diff Comprehensive Metabolic Panel Lab Specimen Collect 23695 Lipid Panel TSH With T4fr Reflex 2. Cough (R05.9: Cough, unspecified) Encouraged to stop smoking Ordered: albuterol, 2 puff(s), Inhalation, q6hr, 18 gm, Refill(s) 2, [facility] [id number], 169.3, cm, 03/02/24 11:06:00 EDT, Height/Length Dosing, 87.2, kg, 03/02/24 11:06:00 EDT, Weight Dosing azithromycin, = 1 (more content not included)... Normal [facility] Comment on above: Result Comment: Elec tronically Signed By: CAROLYN TAMAYO CNP\[place]\Date and Time Signed: 03/02/24 13:11 EDT HEMATOLOGYOrdered [...] 03-02-2024 Cholesterol [Mass/Vol] 228 mg/dL High 120-200 [facility] Comment on above: Performed By: #### 2 [id number] #### [facility] [address] [place] [address] Cholesterol in HDL [Mass/Vol] 43 mg/dL Invalid Interpretation Code [facility] Comment on above: Result Comment: '>= 60 LOW RISK' '<= 40 HIGH RISK' Performed By: #### 2 [id number] #### [facility] [address] [place] [address] Cholesterol in LDL [Mass/Vol] 179 mg/dL High <=129 [facility] Comment on above: Performed By: #### 2 [id number] #### [facility] [address] [place] [address] Cholesterol in VLDL [Mass/Vol] 27 mg/dL Normal 7-40 [facility] Comment on above: Performed By: #### 2 [id number] #### [facility] [address] [place] [address] Triglyceride [Mass/Vol] 133 mg/dL Normal <=149 [facility] Comment on above: Performed By: #### 2 944045 #### [facility] [address] [place] [address] eGFRon 03-02-2024 eGFR 108 mL/min/1.73 m2 Normal >=59 [facility] Comment on above: Order Comment: Order added by Discern Expert. Performed By: #### 1 [id number] #### [facility] [address] [place] [address] CT THORACIC SPINE WO CONTon 07-22-2023 CT [...] dose to as low as reasonably achievable. [facility] BURNS, et al. Management of Incidental Adrenal Masses: A White Paper of the ACR Incidental Findings Committee. J Am Artur Radiol. 2017 Aug;14(8):0017-7087. Finalized by Chandler Quigley MD on 07/22/2023 4:45 PM Normal [facility] XR RIBS LT 2 VWSon 4 [...] Shannon MD on 07/21/2023 1:29 PM Normal [facility] FREE T4on 11-20-2022 Free T4 [Mass/Vol] 0.82 ng/dL Normal 0.76-1.46 [facility] Comment on above: Performed By: #### F T4 #### [facility] [address] [place] [address] Dr. Ron Harris GLYCOHEMOGLOBIN A1Con 2022 ADA RECOMMENDATION SEE BELOW Normal [facility] Comment on above: Result Comment: ADA RECOMMENDED LIMIT 4.0 - 6.0 ADA THERAPEUTIC TARGET < 7.0 ACTION SUGGESTED > 7.0 Performed By: #### A 1C #### [facility] [address] [place] [address] Dr. Ron Harris Glucose [Mass/Vol] 100 mg/dL Normal [facility] Comment on above: Performed By: #### A 1C #### [facility] [address] [place] [address] Dr. Ron Harris HbA1c (Bld) [Mass fraction] 5.1 % Normal 4.5-6.2 [facility] Comment on above: Performed By: #### A 1C #### [facility] [address] [place] [address] Dr. Ron Harris PREG QUANT HCGon 11-20-2022 HCG QUANT <1 Normal [facility] Comment on above: Performed By: #### T SH, PREGQNT #### [facility] [address] [place] [address] Dr. Ron Harris HCG RANGE SEE BELOW Normal [facility] Comment on above: Result Comment: 5-50 0.2-1 WEEK 50-500 1-2 WEEKS 100-5,000 2-3 WEEKS 500-10,000 3-4 WEEKS 1,000-50,000 4-5 WEEKS 10,000-100,000 5-6 WEEKS 15,000-200,000 6-8 WEEKS 10,000-100,000 2-3 MONTHS Performed By: #### T SH, PREGQNT #### [facility] [address] [place] [address] Dr. Ron Hraris PROTIMEon 11-20-2022 INR Coag (PPP) [Relative time] 0.97 {INR} Normal [facility] Comment on above: Performed By: #### P TT, PT #### [facility] [address] [place] [address] Dr. Ron Harris INR GUIDELINES SEE BELOW Normal [facility] Comment on above: Result Comment: SHAMEKA RED INR: 2.0 - 3.0 CONDITIONS NOT LISTED BELOW 2.5 - 3.5 FOR PROSTHETIC HEART VALVE REPLACEMENT 2.5 - 3.5 RECURRENT THROMBOSIS Performed By: #### P TT, PT #### [facility] [address] [place] [address] Dr. Ron Harris PT Coag (PPP) [Time] 10.3 s Normal 9.0-11.6 [facility] Comment on above: Performed By: #### P TT, PT #### [facility] [address] [place] [address] Dr. Ron Harris PTTon 11-20-2022 aPTT Coag (Bld) [Time] 28.8 s Normal 22.3-36.2 [facility] Comment on above: Performed By: #### P TT, PT #### [facility] [address] [place] [address] Dr. Ron Harris TSHon 11-20-2022 TSH 1.739 uIU/mL Normal 0.358-3.740 [facility] Comment on above: Performed By: #### T SH, PREGQNT #### [facility] [address] [place] [address] Dr. Ron Harris US PELVIS AND TRANSVAGon [...] by: HU WHITTEN Date: 2022-11-20 17:27 Normal [facility] Vital Signs Date Time Vital Sign Value Performing Clinician Facility 03-30-2025 11:04-0400 Body mass index (BMI) [Ratio] 31.61 kg/m2 [facility] Work Phone: [facility] 03-30-2025 11:04-0400 Body weight 91.54 kg [facility] [place] Work Phone: [facility] 03-30-2025 11:04-0400 Diastolic blood pressure 86 mm[Hg] [facility] [employer] [facility] [employer] Work Phone: [facility] 03-30-2025 11:04-0400 Systolic blood pressure 130 mm[Hg] [employer] Phone: [facility] 04-21-2024 11:17-0400 Blood Pressure Location [facility] Adhikari [facility] 04-21-2024 11:17-0400 Diastolic blood pressure 100 mm[Hg] [facility] Adhikari [facility] 04-21-2024 11:17-0400 Heart rate 85 /min [facility] Adhikari [facility] 04-21-2024 11:17-0400 SaO2% (BldA) [Mass fraction] 99 % [facility] Adhikari [facility] 04-21-2024 11:17-0400 Systolic blood pressure 148 mm[Hg] Baseneel Adhikari [facility] 03-25-2024 10:23-0400 Body mass index (BMI) [Ratio] 29.91 kg/m2 Duke Ritchie DO Work Phone: [facility] 03-25-2024 10:23-0400 Body weight 86.64 kg Duke Ritchie DO Work Phone: [facility] 03-25-2024 10:23-0400 Diastolic blood pressure 80 mm[Hg] Duke Ritchie DO Work Phone: [facility] 03-25-2024 10:23-0400 Systolic blood pressure 128 mm[Hg] Duke Ritchie DO Work Phone: [facility] 08-13-2023 11:46-0500 Body height 170.2 cm Jesus Flores [employer] ADMINISTRATOR-[employer]ORTS ADMINISTRATOR Work Phone: [facility] 08-13-2023 11:46-0500 Body mass index (BMI) [Ratio] 31.07 kg/m2 Jesus Flores BIZTALK ADMINISTRATOR-SPORTS ADMINISTRATOR Work Phone: [facility] 08-13-2023 11:46-0500 Body temperature 98.01 [degF] Jesus Burgesss BIZTALK ADMINISTRATOR-SPORTS ADMINISTRATOR Work Phone: [facility] 08-13-2023 11:46-0500 Body weight 89.99 kg Jesus Flores BIZTALK ADMINISTRATOR-SPORTS ADMINISTRATOR Work Phone: [facility] 08-13-2023 11:46-0500 Diastolic blood pressure 102 mm[Hg] Jesus Flores BIZTALK ADMINISTRATOR-SPORTS ADMINISTRATOR Work Phone: [facility] 08-13-2023 11:46-0500 Heart rate 108 /min Jesus Flores BIZTALK ADMINISTRATOR-SPORTS ADMINISTRATOR Work Phone: [facility] 08-13-2023 11:46-0500 Respiratory rate 22 /min Jesus Flores BIZTALK ADMINISTRATOR-SPORTS ADMINISTRATOR Work Phone: [facility] 08-13-2023 11:46-0500 SaO2% (BldA) [Mass fraction] 97 % Jesus Flores BIZTALK ADMINISTRATOR-SPORTS ADMINISTRATOR Work Phone: [facility] 08-13-2023 11:46-0500 Systolic blood pressure 166 mm[Hg] Jesus Flores BIZTALK ADMINISTRATOR-SPORTS ADMINISTRATOR Work Phone: [facility] 08-05-2023 14:31-0500 Body mass index (BMI) [Ratio] 31.07 kg/m2 Ana Prado MD Work Phone: [facility] 08-05-2023 14:31-0500 Body temperature 97.9 [degF] Ana Prado MD Work Phone: [facility] 08-05-2023 14:31-0500 Body weight 89.99 kg Ana Prado MD Work Phone: [facility] 08-05-2023 14:31-0500 Diastolic blood pressure 104 mm[Hg] Ana Prado MD Work Phone: [facility] 08-05-2023 14:31-0500 Heart rate 85 /min Ana Prado MD Work Phone: [facility] 08-05-2023 14:31-0500 SaO2% (BldA) [Mass fraction] 94 % Ana Prado MD Work Phone: [facility] 08-05-2023 14:31-0500 Systolic blood pressure 162 mm[Hg] Ana Prado MD Work Phone: [facility] Encounters Encounter Date Encounter Type Care Provider Facility Start: 03-30-2025 End: 03-30-2025 [employer] flow[employer] Duke Ritchie DO Work Phone: [facility] Start: 03-30-2025 End: 03-30-2025 Bamboo flowsheet Duke Ritchie DO Work Phone: [facility] Start: 03-30-2025 End: 03-30-2025 Patient encounter procedure Duke Ritchie DO Work Phone: [facility] Work Phone: Start: 03-30-2025 End: 03-30-2025 Periodic preventive med est patient 40-64yrs Duke Ritchie DO Work Phone: [facility] Comment on above: Well woman exam with routine gynecological exam; Breast cancer screening by mammogram Start: 03-11-2025 End: 03-11-2025 ambulatory XXXX NONE [place] [place] Start: 02-15-2025 End: 02-15-2025 ambulatory CAROLYN A RONI Facility:[facility] Start: 01-12-2025 End: 01-12-2025 ambulatory Jose Adhikari [place] [place] Start: 01-12-2025 End: 01-12-2025 Patient encounter procedure Jose Adhikari [facility] Start: 10-27-2024 End: 10-27-2024 ambulatory CAROLYN A RONI Facility:[facility] [place] Start: 2024 End: 2024 ambulatory CAROLYN A RONI Facility:[facility] [place] Start: 07-05-2024 End: 07-05-2024 [facility] Start: 06-21-2024 End: 06-21-2024 ambulatory CAROLYN A RONI Facility:[facility] [place] Start: 05-19-2024 End: 05-19-2024 ambulatory CAROLYN A RONI Facility:[facility] [place] Start: 05-05-2024 End: 05-05-2024 ambulatory Jose Woodson Adhikari [place] [place] Start: 05-05-2024 End: 05-05-2024 Patient encounter procedure Jose Adhikari [facility] Start: 04-21-2024 End: 04-21-2024 Patient encounter procedure Jose Adhikari [facility] Start: 04-21-2024 End: 04-21-2024 ambulatory Jose Adhikari [place] [place] Start: 03-25-2024 End: 03-25-2024 Bamboo flowsheet Duke Ritchie DO Work Phone: [facility] Start: 03-25-2024 End: 03-30-2024 Bamboo flowsheet Duke Ritchie DO Work Phone: [facility] Start: 03-25-2024 End: 03-30-2024 Clinisync Result Encounter Duke Ritchie DO Work Phone: [facility] Unsolicited Start: 03-25-2024 End: 03-25-2024 ambulatory SAMIA RIVERAETT Not Available Start: 03-25-2024 End: 03-25-2024 ambulatory [facility] RITCHIE Not Available Start: 03-25-2024 End: 03-25-2024 Patient encounter procedure Barakophchristina Lopez DO Work Phone: [facility] Comment on above: Carpal tunnel syndro me on both sides (Primary Dx) Start: 03-25-2024 End: 03-25-2024 Periodic preventive med est patient 40-64yrs Duke Ritchie DO Work Phone: [facility] Comment on above: Well woman exam with routine gynecological exam; Breast cancer screening by mammogram Start: 03-24-2024 End: 03-24-2024 ambulatory CAROLYN TAMAYO Facility:[facility] [place] Start: 03-04-2024 End: 03-04-2024 Refill Ana Prado MD Work Phone: [facility] Comment on above: Gastroesophageal ref lux disease without esophagitis Start: 03-02-2024 End: 03-02-2024 Lab Drop off CAROLYN TAMAYO [facility] Start: 03-02-2024 End: 03-02-2024 ambulatory CAROLYN TAMAYO Facility:[facility] Start: 03-01-2024 ambulatory CAROLYN TAMAYO Facility :[facility] [place] Start: 12-10-2023 End: 12-11-2023 Refill Ana Prado MD Work Phone: [facility] Comment on above: Essential hypertensi on Start: 11-26-2023 End: 12-01-2023 Refill Ana Prado MD Work Phone: [facility] Comment on above: Primary hypertension Start: 09-18-2023 Refill Ana Prado MD Work Phone: [facility] Comment on above: Gastroesophageal ref lux disease without esophagitis Start: 08-18-2023 Orders Only [facility] BIZTALK ADMINISTRATOR-SPORTS ADMINISTRATOR [facility]: [facility] Comment on above: Vaginitis Start: 08-13-2023 End: 08-13-2023 ambulatory [facility] Start: 08-13-2023 End: 08-13-2023 Office outpatient visit 10 minutes [facility] BIZTALK ADMINISTRATOR-SPORTS ADMINISTRATOR [facility]: [facility] Comment on above: Acute frontal sinusi tis, recurrence not specified (Primary Dx); Cough in adult; Bilateral non-suppurative otitis media; Essential hypertension Start: 08-05-2023 End: 08-05-2023 ambulatory ANA PRADO [facility] Start: 08-05-2023 End: 08-05-2023 Office outpatient visit 25 minutes Ana Prado MD Work Phone: [facility] Comment on above: Candidal dermatitis (Primary Dx); Primary hypertension; Adenoma of right adrenal gland Start: 07-23-2023 Telephone encounter Avril Steel CMA [facility] Start: 07-21-2023 End: 07-21-2023 ambulatory JOHNNIE PALUMBO [facility] Start: 11-20-2022 End: 11-21-[address] DUKE DUGAN . Facility: Procedures Date Procedure Procedure Detail Performing Clinician Start: 03-25-2024 End: 03-25-2024 Needle emg ea extremty w/paraspinl area complete Barakchey Jessica DO Work Phone: Start: 03-25-2024 IGP,APTIMA HPV,AGE GDLN Duke Dugan DO Work Phone: Start: 08-05-2023 Adult depression scr eening assessment Ana Prado MD Work Phone: Start: 05-24-2021 Adult depression scr eening assessment Adysan Sleek QUALITY COMPLIANCE CONSULTANT Start: 12-08-2020 Mammography Adysan Sle ek QUALITY COMPLIANCE CONSULTANT Hysterectomy CAROLYN CAMARGOANN Plan of Treatment Date Care Activity Detail Author Start: 04-05-2026 End: 04-05-2026 Patient encounter procedure 04/05/2026 1:00 PM EDT Procedure Visit [facility] [address] [place] [address] Duke Dugan DO [address] [place] [address] [facility] Start: 04-27-2025 ambulatory Ambulatory Facility:[facility] [place] Start: 03-30-2025 End: 05-30-2026 MG Breast - bilateral Screening Bilateral screening mammogram Imaging Routine Breast cancer screening by mammogram Expected: 03/30/2025 (Approximate), Expires: 05/30/2026 [facility] Work Phone: Comment on above: Expected: 03/30/2025 (Approximate), Expires: 05/30/2026 Start: 03-30-2025 End: 03-30-2025 Patient encounter procedure [facility] Comment on above: Arrived Start: 08-14-2024 Tobacco Screening Tobacco Screening [facility] Start: 08-13-2024 Adult BMI Screening Adult BMI Screen ing [facility] Start: 08-13-2024 Tobacco Screening Tobacco Screening [facility] Start: 08-05-2024 Depression Screening Depression Scre ening [facility] Start: 06-10-2024 Adult BMI Screening Adult BMI Screen ing [facility] Start: 06-10-2024 Tobacco Screening Tobacco Screening [facility] Start: 03-25-2024 End: 05-25-2025 MG Breast - bilateral Screening Bilateral screening mammogram Imaging Routine Breast cancer screening by mammogram Expected: 03/25/2024 (Approximate), Expires: 05/25/2025 [facility] Work Phone: Comment on above: Expected: 03/25/2024 (Approximate), Expires: 05/25/2025 Start: 03-25-2024 End: 03-25-2024 Patient encounter procedure 03/25/2024 1:30 PM EDT Procedure Visit [facility] [address] [place] [id number] Samia Lopez, [address] [place] [address] [id number] [facility] Start: 11-07-2023 Adult BMI Follow Up Plan Adult BMI F ollow Up Plan [facility] Start: 10-13-2023 End: 08-05-2024 US Retroperitoneum limited Ultrasound retroperitoneal limited Imaging Routine Adenoma of right adrenal gland Expected: 10/13/2023 (Approximate), Expires: 08/05/2024 [facility] Work Phone: Comment on above: Expected: 10/13/2023 (Approximate), Expires: 08/05/2024 Start: 09-15-2023 End: 09-15-2023 Patient encounter procedure 09/15/2023 10:30 AM EST Office Visit [facility] [address] [facility] [place] [address] Ana Prado MD [address] [place] [address] [facility] Start: 08-05-2023 End: 08-05-2023 Patient encounter procedure 08/05/2023 2:30 PM EST Office Visit [facility] [address] [place] [id number] Ana Prado MD [address], [place], [place] [id number] [facility] Start: 05-24-2022 Depression Screening Depression Scre ening [facility] Start: 12-08-2021 Screening for malign ant neoplasm of breast Mammogram [facility] Start: 1996 DTaP,Tdap and Td Vac cines (1 - Tdap) DTaP,Tdap and Td Vaccines (1 - Tdap) [facility] Start: 1977 Tobacco Counseling Tobacco Counselin [facility] THIN PREP TIS PAP AN D HR HPV DNA THIN PREP TIS PAP AND HR HPV DNA Pathology and Cytology Routine Well woman exam with routine gynecological exam Ordered: 03/25/2024 [facility] Comment on above: Ordered: 03/25/2024 THIN PREP TIS PAP AN D HR HPV DNA THIN PREP TIS PAP AND HR HPV DNA Pathology and Cytology Routine Well woman exam with routine gynecological exam Ordered: 03/30/2025 [facility] Comment on above: Ordered: 03/30/2025 Immunizations Immunization Date Immunization Notes Care Provider Fa otoniel 02-26-2022 SARS-CoV-2 (COVID-19 ) mRNA BNT-162b2 judith TAMAYO [facility] [place] NEGATED: Highlighted row has not occurred!08-18-2018 influenza, injectable, quadrivalent, preservative free Adangeline [facility] Comment on above: Deferred: Patient de cision Payers Date Payer Category Payer Private Health Insurance [id number] 2021 Blue Cross Blue Shield BCBS Memb er Subscriber Plan / Payer (Effective 2021-Present) Name: Amisha Black Relation to Subscriber: Self Name: Amisha Black Payer ID: Not on file Type: Not on file Address: [place] [id number] 2019 Unknown [id number]. [id number] 1977 Unknown [id number] 2.16840.1.687117.3.579. 2.593 1977 Unknown [id number] 2.16840.1.703492.3.579. 2.1285 1977 Unknown [id number] 2.16840.1.302304.3.579. 2.1285 1977 Unknown [id number] 2.16840.1.502855.3.579. 2. 1977 Unknown [id number] 2.16840.1.953938.3.579. 2. 1977 Unknown [id number] 2.16.840.1.017323.3.579. 2.7 1977 Unknown [id number] 2.16.840.1.110471.3.579. 2.1258 1977 Unknown [id number] 2.16.840.1.242150.3.579. 2.1258 1977 Unknown [id number] 2.16.840.1.193005.3.579. 2.1285 1977 Unknown [id number] 2.16.840.1.632210.3.579. 2.1285 1977 Unknown [id number] 2.16.840.1.738386.3.579. 2.1286 1977 Unknown [id number] 2.16.840.1.838378.3.579. 2. 1977 Unknown [id number] 2.16.840.1.815340.3.579. 2 1977 Unknown [id number] 2.16.840.1.770911.3.579. 2. 1977 Unknown [id number] 2.16.840.1.998408.3.579. 2 1977 Unknown [id number] 2.16.840.1.771407.3.579. 2 1977 Unknown [id number] 2.16.840.1.109111.3.579. 2 1977 Unknown [id number] 2.16.840.1.866751.3.579. 2 1977 Unknown [id number] 2.16.840.1.099255.3.579. 2 1977 Unknown [id number] 2.16.840.1.455268.3.579. 2 1977 Unknown [id number] 2.16.840.1.091074.3.579. 2 1977 Unknown [id number] 2.16.840.1.276238.3.579. 2.72 1959 Unknown [id number] Unknown [id number] Social History Date Type Detail Facility Start: 03-02-2024 End: 10-27-2024 Tobacco smoking status Heavy tobacco smoker (finding) [facility] Tobacco smoking status Never [facility] Start: 02-24-2023 End: 03-30-2025 Sex Assigned At Female [facility] Start: 01-24-2023 [facility] Start: 02-24-2023 End: 03-30-2025 Alcoholic beverage intake Lifetime non-drinker (finding) [facility] Start: 02-24-2023 End: 03-30-2025 History of Social function [facility] Start: 1975 Sex assigned at Not on file [facility] Start: 09-04-2022 Tobacco [facility] Sm[facility] tobacco daily [facility] History of tobacco use Cigarette Smoker [facility] Start: 09-04-2022 Tobacco use and exposure Smoke less tobacco non-user [facility] Start: 06-10-2023 End: 08-14-2023 Alcohol intake Current drinker of alcohol (finding) [facility] Sexual Orientation [facility] Start: 10-25-2009 Sex Female (finding) [facility] Goals Date Patient Goal Desired Activity /State Personal health goal Comment on above: Formatting of this n ote might be different from the original. Evaluation of progress towards goal: safe transition from hospital to home with family support. Functional Status Date Assessment Result Facility 04-21-2024 Functional Status No [facility] Clinical Notes 07-23-2023 to 03-30-2025 Gayathri Lopez HAND BANDER - 03/30/2025 11:00 AM EDTRocael Barillas, ARRT - 03/25/2024 1:30 PM Gerry Viramontes LPN - 03/25/2024 10:00 AM EDTTelephone Encounter - Iris Gonzalez CNA - 08/18/2023 8:10 AM EST Note Date & Type Note Facility 03-30-2025 History of Presen t illness Narrative Reason for Appointment: Patient ID: Amisha Black is a 49 y.o. female who presents for Well Women Visit Patient presents today for Annual Exam. MEDICATIONS Current Outpatient Medications Medication Instructions amLODIPine (NORVASC) 10 mg, Daily ascorbic acid (Vitamin C) 500 MG chewable tablet Every 24 hours ascorbic acid (VITAMIN C) 500 mg, Daily RT ferrous sulfate 325 (65 Fe) MG tablet Every 24 hours fluticasone (Flonase Sensimist) 27.5 MCG/SPRAY nasal spray 2 sprays, Daily hydroCHLOROthiazide (HYDRODiuril) 12.5 MG tablet ibuprofen 800 MG tablet losartan (COZAAR) 50 mg, Daily RT omeprazole (PRILOSEC) 40 mg, Daily RT ALLERGIES No Known Allergies PROBLEMS Active Ambulatory Problems Diagnosis Date Noted Acute frontal sinusitis 09/26/2020 Essential hypertension 05/25/2019 Gastroesophageal reflux disease without esophagitis 09/26/2020 Hypokalemia 10/09/2022 Iron deficiency anemia due to chronic blood loss 10/09/2022 Left lower quadrant abdominal pain 10/08/2022 Menorrhagia 10/17/2022 Norovirus 10/09/2022 Right ear pain 12/28/2020 Resolved Ambulatory Problems Diagnosis Date Noted No Resolved Ambulatory Problems Past Medical History: Diagnosis Date History of blood transfusion Iron deficiency Screening mammogram for breast cancer 2020 HISTORY PAST MEDICAL HISTORY SOCIAL HISTORY Past Medical History: Diagnosis Date History of blood transfusion Iron deficiency Menorrhagia Screening mammogram for breast cancer 2020 neg Social History Tobacco Use Smoking status: Never Smokeless tobacco: Not on file Substance Use Topics Alcohol use: Never Drug use: Never FAMILY HISTORY No family history on file. SURGICAL HISTORY Past Surgical History: Procedure Laterality Date APPENDECTOMY CYSTOSCOPY 01/13/2023 CYSTOSCOPY 01/13/2023 GALL BLADDER HYSTERECTOMY 01/13/2023 Vnotes ROBOTIC ASSISTED HYSTERECTOMY 01/13/2023 TONSILLECTOMY TUBAL LIGATION REVIEW OF SYSTEMS Review of Systems: Review of Systems Constitutional: Negative. HENT: Negative. Eyes: Negative. Respiratory: Negative. Cardiovascular: Negative. Gastrointestinal: Negative. Genitourinary: Negative. Musculoskeletal: Negative. Skin: Negative. Neurological: Negative. All other systems reviewed and are negative. Hematological: Negative. Endocrine: Negative. Allergic/Immunologic: Negative. OBJECTIVE Objective: Physical Exam Constitutional: Appearance: Normal appearance. She is well-developed. Genitourinary: Vulva normal. Breasts: Breasts are soft. Right: Normal. Left: Normal. Cardiovascular: Rate and Rhythm: Normal rate and regular rhythm. Pulmonary: Effort: Pulmonary effort is normal. Breath sounds: Normal breath sounds. Abdominal: General: Bowel sounds are normal. There is no distension. Palpations: Abdomen is soft. Tenderness: There is no abdominal tenderness. There is no guarding or rebound. Musculoskeletal: General: No swelling. Normal range of motion. Right lower leg: No edema. Left lower leg: No edema. Neurological: Mental Status: She is alert and oriented to person, place, and time. Skin: General: Skin is warm and dry. Psychiatric: Mood and Affect: Mood normal. Behavior: Behavior normal. Vitals and nursing note reviewed. Exam conducted with a workforce development assistant present. Vitals: Estimated body mass index is 31.61 kg/m as calculated from the following: Height as of 23: 5' 7 . Weight as of this encounter: 201 lb 12.8 oz. BP: 130/86 No LMP recorded (lmp unknown). Patient has had a hysterectomy. ASSESSMENT & PLAN ICD-10-CM 1. Well woman exam with routine gynecological exam Z01.419 THIN PREP TIS PAP AND HR HPV DNA 2. Breast cancer screening by mammogram Z12.31 Bilateral screening mammogram Bilateral screening mammogram Annual Exam: Patient presents today for an annual exam. Patient states she is doing well and has no complaints. Pap was obtained without difficulty. Orders Placed This Encounter Procedures Bilateral screening mammogram Follow Up:Will refer to Dr. Levine for Colonoscopy.Patient is to return in one year for annual unless needed otherwise. Documented by Gayathri Lopez NP on behalf of: Duke Dugan DO documented in this encounter [facility] 10-27-2024 Note Patient Education Nutrition DASH Eating Plan DASH stands for Dietary Approaches to Stop Hypertension. The DASH eating plan is a healthy eating plan that has been shown to: ??? Lower high blood pressure (hypertension). ??? Reduce your risk for type 2 diabetes, heart disease, and stroke. ??? Help with weight loss. What are tips for following this plan? Reading food labels ??? Check food labels for the amount of salt (sodium) per serving. Choose foods with less than 5 percent of the Daily Value (DV) of sodium. In general, foods with less than 300 milligrams (mg) of sodium per serving fit into this eating plan. ??? To find whole grains, look for the word whole as the first word in the ingredient list. Shopping ??? Buy products labeled as low-sodium or no salt added. ??? Buy fresh foods. Avoid canned foods and pre-made or frozen meals. Cooking ??? Try not to add salt when you cook. Use salt-free seasonings or herbs instead of table salt or sea salt. Check with your health care provider or pharmacist before using salt substitutes. ??? Do not berrios foods. Cook foods in healthy ways, such as baking, boiling, grilling, roasting, or broiling. ??? Cook using oils that are good for your heart. These include olive, canola, avocado, soybean, and sunflower oil. Meal planning ??? Eat a balanced diet. This should include: ? 4 or more servings of fruits and 4 or more servings of vegetables each day. Try to fill half of your plate with fruits and vegetables. ? 6?8 servings of whole grains each day. ? 6 or less servings of lean meat, poultry, or fish each day. 1 oz is 1 serving. A 3 oz (85 g) serving of meat is about the same size as the palm of your hand. One egg is 1 oz (28 g). ? 2?3 servings of low-fat dairy each day. One serving is 1 cup (237 mL). ? 1 serving of nuts, seeds, or beans 5 times each week. ? 2?3 servings of heart-healthy fats. Healthy fats called omega-3 fatty acids are found in foods such as walnuts, flaxseeds, fortified milks, and eggs. These fats are also found in cold-water fish, such as sardines, salmon, and mackerel. ??? Limit how much you eat of: ? Canned or prepackaged foods. ? Food that is high in trans fat, such as fried foods. ? Food that is high in saturated fat, such as fatty meat. ? Desserts and other sweets, sugary drinks, and other foods with added sugar. ? Full-fat dairy products. ??? Do not salt foods before eating. ??? Do not eat more than 4 egg yolks a week. ??? Try to eat at least 2 vegetarian meals a week. ??? Eat more home-cooked food and less restaurant, buffet, and fast food. Lifestyle ??? When eating at a restaurant, ask if your food can be made with less salt or no salt. ??? If you drink alcohol: ? Limit how much you have to: ? 0?1 drink a day if you are female. ? 0?2 drinks a day if you are male. ? Know how much alcohol is in your drink. In the [place] one drink is one 12 oz bottle of beer (355 mL), one 5 oz glass of wine (148 mL), or one 1? oz glass of hard liquor (44 mL). General information ??? Avoid eating more than 2,300 mg of salt a day. If you have hypertension, you may need to reduce your sodium intake to 1,500 mg a day. ??? Work with your provider to stay at a healthy body weight or lose weight. Ask what the best weight range is for you. ??? On most days of the week, get at least 30 minutes of exercise that causes your heart to beat faster. This may include walking, swimming, or biking. ??? Work with your provider or dietitian to adjust your eating plan to meet your specific calorie needs. What foods should I eat? Fruits All fresh, dried, or frozen fruit. Canned fruits that are in their natural juice and do not have sugar added to them. Vegetables Fresh or frozen vegetables that are raw, steamed, roasted, or grilled. Low-sodium or reduced-sodium tomato and vegetable juice. Low-sodium or reduced-sodium tomato sauce and tomato paste. Low-sodium or reduced-sodium canned vegetables. Grains Whole-grain or whole-wheat bread. Whole-grain or whole-wheat pasta. Brown rice. Oatmeal. Quinoa. Bulgur. Whole-grain and low-sodium cereals. Alicia bread. Low-fat, low-sodium crackers. Whole-wheat flour tortillas. Meats and other proteins Skinless chicken or turkey. Ground chicken or turkey. Pork with fat trimmed off. Fish and seafood. Egg whites. Dried beans, peas, or lentils. Unsalted nuts, nut butters, and seeds. Unsalted canned beans. Lean cuts of beef with fat trimmed off. Low-sodium, lean precooked or cured meat, such as sausages or meat loaves. Dairy Low-fat (1%) or fat-free (skim) milk. Reduced-fat, low-fat, or fat-free cheeses. Nonfat, low-sodium ricotta or cottage cheese. Low-fat or nonfat yogurt. Low-fat, low-sodium cheese. Fats and oils Soft margarine without trans fats. Vegetable oil. Reduced-fat, low-fat, or light mayonnaise and salad dressings (reduced-sodium). Canola, safflower, olive, avocado, soybean, and sunflower oils (more content not included)... [facility] 06-21-2024 Note Patient Education ENT Cough, Adult A cough helps to clear your throat and lungs. It may be a sign of an illness or another condition. A short-term (acute) cough may last 2?3 weeks. A long-term (chronic) cough may last 8 or more weeks. Many things can cause a cough. They include: ??? Illnesses such as: ? An infection in your throat or lungs. ? Asthma or other heart or lung problems. ? Gastroesophageal reflux. This is when acid comes back up from your stomach. ??? Breathing in things that bother (irritate) your lungs. ??? Allergies. ??? Postnasal drip. This is when mucus runs down the back of your throat. ??? Smoking. ??? Some medicines. Follow these instructions at home: Medicines ??? Take swcl-pvf-ukdtxka and prescription medicines only as told by your doctor. ??? Talk with your doctor before you take cough medicine (cough suppressants). Eating and drinking ??? Do not drink alcohol. ??? Do not drink caffeine. ??? Drink enough fluid to keep your pee (urine) pale yellow. Lifestyle ??? Stay away from cigarette smoke. ??? Do not smoke or use any products that contain nicotine or tobacco. If you need help quitting, ask your doctor. ??? Stay away from things that make you cough. These may include perfume, candles, cleaning products, or campfire smoke. General instructions ??? Watch for any changes to your cough. Tell your doctor about them. ??? Always cover your mouth when you cough. ??? If the air is dry in your home, use a cool mist vaporizer or humidifier. ??? If your cough is worse at night, try using extra pillows to raise your head up higher while you sleep. ??? Rest as needed. Contact a doctor if: ??? You have new symptoms. ??? Your symptoms get worse. ??? You cough up pus. ??? You have a fever that does not go away. ??? Your cough does not get better after 2?3 weeks. ??? Cough medicine does not help, and you are not sleeping well. ??? You have pain that gets worse or is not helped with medicine. ??? You are losing weight and do not know why. ??? You have night sweats. Get help right away if: ??? You cough up blood. ??? You have trouble breathing. ??? Your heart is beating very fast. These symptoms may be an emergency. Get help right away. Call 911. ??? Do not wait to see if the symptoms will go away. ??? Do not drive yourself to the hospital. This information is not intended to replace advice given to you by your health care provider. Make sure you discuss any questions you have with your health care provider. Document Revised: 02/28/2023 Document Reviewed: 02/28/2023 [employer] Patient Education ? 2023 [employer]. [facility] 05-20-2024 Note Patient Education Orthopedics Pain Without a Known Cause Pain can occur in any part of the body and can range from mild to severe. Sometimes no cause can be found for pain. Some common types of pain that can occur without a known cause include: ??? Headache. ??? Back pain. ??? Abdominal pain. ??? Neck pain. Your health care provider may do tests to try to find the cause of your pain. If no cause is found, your health care provider will treat you for pain without a known cause. In some cases, your health care provider may do more tests, repeat tests that have already been done, and look further for a possible cause. Follow these instructions at home: Medicines ??? Take yqxo-wxn-ajotipd and prescription medicines only as told by your health care provider. ??? Ask your health care provider if the medicine prescribed to you: ? Requires you to avoid driving or using machinery. ? Can cause constipation. You may need to take these actions to prevent or treat constipation: ? Drink enough fluid to keep your urine pale yellow. ? Take lked-zgc-temriyi or prescription medicines. ? Eat foods that are high in fiber, such as beans, whole grains, and fresh fruits and vegetables. ? Limit foods that are high in fat and processed sugars, such as fried and sweet foods. Managing pain, stiffness, and swelling ??? If directed, put ice on the painful area. To do this: ? Put ice in a plastic bag. ? Place a towel between your skin and the bag. ? Leave the ice on for 20 minutes, 2?3 times a day. ? Remove the ice if your skin turns bright red. This is very important. If you cannot feel pain, heat, or cold, you have a greater risk of damage to the area. ??? If directed, apply heat to the affected area. Use the heat source that your health care provider recommends, such as a moist heat pack or a heating pad. ? Place a towel between your skin and the heat source. ? Leave the heat on for 20?30 minutes. ? Remove the heat if your skin turns bright red. This is especially important if you are unable to feel pain, heat, or cold. You may have a greater risk of getting burned. General instructions ??? Stop any activities that cause pain. Rest as told by your health care provider during periods of severe pain. ??? Return to your normal activities as told by your health care provider. Ask your health care provider what activities are safe for you. ??? Exercise regularly. ??? Reduce your stress with activities such as yoga or meditation. Talk with your health care provider about other ways to reduce stress. ??? Eat a balanced diet that includes fruits and vegetables, whole grains, lean meat, and low-fat dairy. Talk with your health care provider if you have any questions about your diet. Contact a health care provider if: ??? You have continuing pain, and no reason can be found for it. ??? Your symptoms do not get better after treatment. Get help right away if: ??? Your pain is making you want to harm yourself. Get help right away if you feel like you may hurt yourself or others, or have thoughts about taking your own life. Go to your nearest emergency room or: ??? Call 911. ??? Call the National Suicide Prevention Lifeline at or 391. This is open 24 hours a day. ??? Text the Crisis Text Line at 067896. Summary ??? Pain can occur in any part of the body and can range from mild to severe. ??? Your health care provider may do tests to try to find the cause of your pain. If no cause is found, your health care provider may diagnose you with pain without a known cause. ??? To help your pain, take medicines as told by your health care provider, apply ice or heat, exercise, reduce stress, and eat a healthy diet. This information is not intended to replace advice given to you by your health care provider. Make sure you discuss any questions you have with your health care provider. Document Revised: 02/27/2022 Document Reviewed: 02/27/2022 [employer] Patient Education ? 2023 [employer]. [facility] 04-21-2024 Note Patient Education Cardiovascular Hypertension, Adult Hypertension is another name for high blood pressure. High blood pressure forces your heart to work harder to pump blood. This can cause problems over time. There are two numbers in a blood pressure reading. There is a top number (systolic) over a bottom number (diastolic). It is best to have a blood pressure that is below 120/80. What are the causes? The cause of this condition is not known. Some other conditions can lead to high blood pressure. What increases the risk? Some lifestyle factors can make you more likely to develop high blood pressure: ? Smoking. ? Not getting enough exercise or physical activity. ? Being overweight. ? Having too much fat, sugar, calories, or salt (sodium) in your diet. ? Drinking too much alcohol. Other risk factors include: ? Having any of these conditions: ? Heart disease. ? Diabetes. ? High cholesterol. ? Kidney disease. ? Obstructive sleep apnea. ? Having a family history of high blood pressure and high cholesterol. ? Age. The risk increases with age. ? Stress. What are the signs or symptoms? High blood pressure may not cause symptoms. Very high blood pressure (hypertensive crisis) may cause: ? Headache. ? Fast or uneven heartbeats (palpitations). ? Shortness of breath. ? Nosebleed. ? Vomiting or feeling like you may vomit (nauseous). ? Changes in how you see. ? Very bad chest pain. ? Feeling dizzy. ? Seizures. How is this treated? ? This condition is treated by making healthy lifestyle changes, such as: ? Eating healthy foods. ? Exercising more. ? Drinking less alcohol. ? Your doctor may prescribe medicine if lifestyle changes do not help enough and if: ? Your top number is above 130. ? Your bottom number is above 80. ? Your personal target blood pressure may vary. Follow these instructions at home: Eating and drinking ? If told, follow the DASH eating plan. To follow this plan: ? Fill one half of your plate at each meal with fruits and vegetables. ? Fill one fourth of your plate at each meal with whole grains. Whole grains include whole-wheat pasta, brown rice, and whole-grain bread. ? Eat or drink low-fat dairy products, such as skim milk or low-fat yogurt. ? Fill one fourth of your plate at each meal with low-fat (lean) proteins. Low-fat proteins include fish, chicken without skin, eggs, beans, and tofu. ? Avoid fatty meat, cured and processed meat, or chicken with skin. ? Avoid pre-made or processed food. ? Limit the amount of salt in your diet to less than 1,500 mg each day. ? Do not drink alcohol if: ? Your doctor tells you not to drink. ? You are , may be , or are planning to become . ? If you drink alcohol: ? Limit how much you have to: ? 0?1 drink a day for women. ? 0?2 drinks a day for men. ? Know how much alcohol is in your drink. In the [place] one drink equals one 12 oz bottle of beer (355 mL), one 5 oz glass of wine (148 mL), or one 1? oz glass of hard liquor (44 mL). Lifestyle ? Work with your doctor to stay at a healthy weight or to lose weight. Ask your doctor what the best weight is for you. ? Get at least 30 minutes of exercise that causes your heart to beat faster (aerobic exercise) most days of the week. This may include walking, swimming, or biking. ? Get at least 30 minutes of exercise that strengthens your muscles (resistance exercise) at least 3 days a week. This may include lifting weights or doing Pilates. ? Do not smoke or use any products that contain nicotine or tobacco. If you need help quitting, ask your doctor. ? Check your blood pressure at home as told by your doctor. ? Keep all follow-up visits. Medicines ? Take cerq-vuj-rbnhpcp and prescription medicines only as told by your doctor. Follow directions carefully. ? Do not skip doses of blood pressure medicine. The medicine does not work as well if you skip doses. Skipping doses also puts you at risk for problems. ? Ask your doctor about side effects or reactions to medicines that you should watch for. Contact a doctor if: ? You think you are having a reaction to the medicine you are taking. ? You have headaches that keep coming back. ? You feel dizzy. ? You have swelling in your ankles. ? You have trouble with your vision. Get help right away if: ? You get a very bad headache. ? You start to feel mixed up (confused). ? You feel weak or numb. ? You feel faint. ? You have very bad pain in your: ? Chest. ? Belly (abdomen). ? You vomit more than once. ? You have trouble breathing. These symptoms may be an emergency. Get help right away. Call 911. ? Do not wait to see if the symptoms will go away. ? Do not drive yourself to the hospital. Summary ? Hypertension is another name for high blood pressure. ? High blood pressure forces your heart to work harder to p (more content not included)... [facility] 03-29-2024 Hospital Discharg e instructions Follow Up Care 03/29/2024 14:35:59 With:Onofre VANCE, Jose Woodson, PUL, LESLIE Address: [address] [place] [address] Pulmonary Clinic (Heart & V[facility]) [place] [id number]- When: Unknown Comments:after his testing is completed [facility] 03-25-2024 History of Presen t illness Narrative Images from the original note were not included. Reason for Appointment: EMG Patient: Amisha Black : 1975 EMG Computer: DocOnYou Referring Physician: Carolyn Desir CNP EMG: DANIEL health safety manager: Rocael Barillas RT(R) Office Location: [place] Reason for EMG: c/o numbness/tingling in bilateral hands. Hx of CTR on left. No hx of DM. Not on blood thinners. Comments: Procedure was explained to the patient who expressed understanding. Patient appeared to have tolerated the test well despite some discomfort due to the nature of the test. documented in this encounter [facility] 03-25-2024 History of Presen t illness Narrative Reason for Appointment: Patient ID: Amisha Black is a 48 y.o. female who presents for Gynecologic Exam Patient presents today for Annual Exam. MEDICATIONS Current Outpatient Medications Medication Instructions ascorbic acid (Vitamin C) 500 MG chewable tablet Every 24 hours ascorbic acid (VITAMIN C) 500 mg, Oral, Daily RT ferrous sulfate 325 (65 Fe) MG tablet Every 24 hours fluticasone (Flonase Sensimist) 27.5 MCG/SPRAY nasal spray 2 sprays, Each Nostril, Daily hydroCHLOROthiazide (HYDRODiuril) 12.5 MG tablet ibuprofen 800 MG tablet losartan (COZAAR) 50 mg, Oral, Daily RT omeprazole (PRILOSEC) 40 mg, Oral, Daily RT ALLERGIES No Known Allergies PROBLEMS Active Ambulatory Problems Diagnosis Date Noted Acute frontal sinusitis 09/26/2020 Essential hypertension (CMS/HCC) 05/25/2019 Gastroesophageal reflux disease without esophagitis 09/26/2020 Hypokalemia 10/09/2022 Iron deficiency anemia due to chronic blood loss 10/09/2022 Left lower quadrant abdominal pain 10/08/2022 Menorrhagia 10/17/2022 Norovirus 10/09/2022 Right ear pain 12/28/2020 Resolved Ambulatory Problems Diagnosis Date Noted No Resolved Ambulatory Problems Past Medical History: Diagnosis Date History of blood transfusion Iron deficiency Screening mammogram for breast cancer 2020 HISTORY PAST MEDICAL HISTORY SOCIAL HISTORY Past Medical History: Diagnosis Date History of blood transfusion Iron deficiency Menorrhagia Screening mammogram for breast cancer 2020 neg Social History Tobacco Use Smoking status: Never Smokeless tobacco: Not on file Substance Use Topics Alcohol use: Never Drug use: Never FAMILY HISTORY No family history on file. SURGICAL HISTORY Past Surgical History: Procedure Laterality Date APPENDECTOMY CYSTOSCOPY 01/13/2023 CYSTOSCOPY 01/13/2023 GALL BLADDER HYSTERECTOMY 01/13/2023 Vnotes ROBOTIC ASSISTED HYSTERECTOMY 01/13/2023 TONSILLECTOMY TUBAL LIGATION REVIEW OF SYSTEMS Review of Systems: Review of Systems All other systems reviewed and are negative. OBJECTIVE Objective: Physical Exam Constitutional: Appearance: Normal appearance. She is well-developed. Genitourinary: Vulva normal. Vaginal cuff intact. Cervix is not absent. Uterus is not absent. Breasts: Breasts are soft. Right: Normal. Left: Normal. Cardiovascular: Rate and Rhythm: Normal rate and regular rhythm. Abdominal: General: Bowel sounds are normal. There is no distension. Palpations: Abdomen is soft. Tenderness: There is no abdominal tenderness. There is no guarding or rebound. Musculoskeletal: General: No swelling. Normal range of motion. Right lower leg: No edema. Left lower leg: No edema. Neurological: Mental Status: She is alert and oriented to person, place, and time. Skin: General: Skin is warm and dry. Psychiatric: Mood and Affect: Mood normal. Behavior: Behavior normal. Vitals and nursing note reviewed. Exam conducted with a workforce development assistant present. Vitals: Estimated body mass index is 29.91 kg/m as calculated from the following: Height as of 02/24/23: 5' 7 . Weight as of this encounter: 191 lb. BP: 128/80 No LMP recorded (lmp unknown). Patient has had a hysterectomy. ASSESSMENT & PLAN ICD-10-CM 1. Well woman exam with routine gynecological exam Z01.419 THIN PREP TIS PAP AND HR HPV DNA 2. Breast cancer screening by mammogram Z12.31 Bilateral screening mammogram Bilateral screening mammogram Annual: Patient presents today for an annual exam. Patient states she is doing well and has no complaints. Pap was obtained without difficulty and patient given mammogram order to have scheduled/obtained. Orders Placed This Encounter Procedures Bilateral screening mammogram Follow Up: Patient is to return in one year for annual unless needed otherwise. Documented by Krystal Viramontes LPN on behalf of: Duke Dugan DO documented in this encounter [facility] 08-18-2023 Miscellaneous Notes Amisha called stated she was seen on Friday and provider said to call office if she felt she was getting a yeast infection. She would like something called in to [facility] pharmacy for yeast infection. sent Patient notified. documented in this encounter [facility] 08-18-2023 Telephone encounter Note Amisha called stated she was seen on Friday and provider said to call office if she felt she was getting a yeast infection. She would like something called in to [facility] for yeast infection. [facility] 08-18-2023 Telephone encounter Note sent [facility] 08-18-2023 Telephone encounter Note Patient notified. [facility] 08-13-2023 History of Presen t illness Narrative Subjective CC: Cough, REECE, Clogged Ears SAME DAY Patient ID: Amisha Black is a 47 y.o. female. HPI Nasal and head congestion x 2 weeks. Sinus congestion and face tenderness. Ear plugged with drainage in left ear. Dizziness when getting up. Endorses headache 8/10. Some body aches, diarrhea at the beginning of the illness. Productive cough with yellow sputum. Having Coughing fits. Nasal congestion with yellow mucus. Watery eyes but denies itching. Denies chest pain or shortness of breath, chills, fever, nausea. Blood pressure is elevated today, Amisha reports she was out of blood pressure [...] nursing note reviewed. Exam conducted with a workforce development assistant present. Constitutional: Appearance: Normal appearance. HENT: Head: [...] otitis media. She should continue with flonase. Amisha will call the office if symptoms do not improve. She can also continue with symptomatic treatment. Discussed elevated BP today, she will monitor and call the office if it remains elevated. Reports she is taking losartan only once daily. Amisha was seen today for nasal congestion and cough. Diagnoses and all orders for this visit: Acute frontal sinusitis, recurrence not specified Cough in adult Bilateral non-suppurative otitis media Essential hypertension Other orders - amoxicillin-pot clavulanate (AUGMENTIN) 875-125 mg per tablet; Take 1 tablet by mouth every 12 (twelve) hours for 10 days. ZACK Schaffer 08/14/23 0936 documented [facility] this [facility] History of Presen t illness Narrative Images from the original note were not included. [address] [place] [id number] Patient: Amisha Black Date of : 1975 Encounter Date: 08/05/2023 SUBJECTIVE: Chief Complaint: Chief Complaint Patient presents with Results Review CT results Patient ID: Amisha Black is a 47 y.o. female. Overall healthy 47-year-old female here to review her CT findings of incidental [place] and discuss new symptoms of candidal dermatitis. Also here to follow-up on her chronic hypertension. Recently had CT scan completed which showed incidental [place] which patient expressed some concern about. Proximally 2.6 cm in size in the right adrenal gland, overall has benign appearance on CT scan imaging. Patient does endorse symptoms intermittent diaphoresis, diarrhea and has elevated blood pressure. However the blood pressure is fairly responsive to amlodipine which will be refilled today. Has new symptoms of candidal dermatitis given excessive diaphoresis and recurrent erythematous irritation and rash in the groin space which resolves with candidal treatment. The following portions of the patient's history were reviewed and updated as appropriate: allergies, current medications, past family history, past medical history, past social history, past surgical history and problem list. PHYSICAL EXAMINATION: Vitals: 08/05/23 1431 BP: (!) 162/104 BP Site: Left Arm BP Postition: Sitting Pulse: 85 Temp: 36.6 C (97.9 F) TempSrc: Temporal SpO2: 94% Weight: 90 kg (198 lb 6.4 oz) Physical Exam Vitals reviewed. Constitutional: Appearance: She is well-developed. She is not ill-appearing. HENT: Head: Normocephalic and atraumatic. Nose: Nose normal. Eyes: General: No scleral icterus. Extraocular Movements: Extraocular movements intact. Pupils: Pupils are equal, round, and reactive to light. Cardiovascular: Rate and Rhythm: Normal rate and regular rhythm. Heart sounds: Normal heart sounds. No murmur heard. Pulmonary: Effort: Pulmonary effort is normal. No respiratory distress. Breath sounds: Normal breath sounds. No wheezing. Abdominal: General: Bowel sounds are normal. Palpations: Abdomen is soft. Tenderness: There is no abdominal tenderness. Musculoskeletal: Cervical back: Normal range of motion and neck supple. Lymphadenopathy: Cervical: No cervical adenopathy. Neurological: Mental Status: She is alert and oriented to person, place, and time. Cranial Nerves: No cranial nerve deficit. ASSESSMENT/PLAN: Aimsha was seen today for results. Diagnoses and all orders for this visit: Candidal dermatitis - nystatin (MYCOSTATIN) powder; Apply 1 Application topically in the morning and 1 Application at noon and 1 Application in the evening and 1 Application before bedtime. Primary hypertension - amLODIPine (NORVASC) 10 mg tablet; Take 1 tablet (10 mg total) by mouth in the morning. 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 Patient expressed concern therefore will follow with interval three-month ultrasound assessments to establish stability/no growth. Red flag symptoms for emergent care reviewed. ANA PRADO MD Family Medicine Physician [facility] 08/05/23 This note was completed with voice recognition software. The document was reviewed for errors however some may still be present. Please do not hesitate to contact/[facility] the author to verify any questions/concerns. documented in this encounter [facility] 07-23-[address] Palumbo called into the office to [...] further review. In person or Video OK. ANA Zamora MD 07/23/23 Called patient and got her scheduled. documented in this encounter [facility] 07-23-[address] Palumbo called into the office [...] ordered 07/04/23 and resulted 07/21/23. In media [facility] 07-23-2023 Telephone encounter Note Patient should set up an appointment to further review. In person or Video OK. ANA Zamora MD 07/23/23 [facility] 07-23-2023 Telephone encounter Note Called patient and got her scheduled. [facility] Evaluation + Plan note Future Appointments Appointment Date:03/24/2024 07:40:00 AM Scheduled Provider:CAROLYN TAMAYO CNP Location:[facility] Appointment Type: Open [facility] Evaluation + Plan note Future Appointments Appointment Date:05/05/2024 12:30:00 PM Scheduled Provider: Location:.[facility] Appointment Type:PUL Pulmonary Function Test (FT) Appointment Date:2024 10:00:00 AM Scheduled Provider:CAROLYN TAMAYO CNP Location:[facility] Appointment Type:FM Open Future Scheduled TestsCT Chest w/o Contrast 08/22/24 [facility] Evaluation + Plan note Future Appointments Appointment Date:2024 10:00:00 AM Scheduled Provider:CAROLYN TAMAYO CNP Location:[facility] Appointment Type:FM Open Future Scheduled TestsCT Chest w/o Contrast 08/22/24 [facility] Evaluation + Plan note Future Appointments Appointment Date:04/27/2025 11:00:00 AM Scheduled Provider:CAORLYN TAMAYO CNP Location:[facility] Appointment Type: Open Future Scheduled TestsUS Extremity Non-Vascular Limited Right 05/20/24 [facility] Evaluation note Diagnosis Carpal tunnel syndrome on both sides- Primary Carpal tunnel syndrome documented in this encounter [facility] Diagnosis Well woman exam with routine gynecological exam Routine gynecological examination Breast cancer screening by mammogram documented in this encounter [facility]* Diagnosis Candidal dermatitis- Primary Primary hypertension Unspecified essential hypertension Adenoma of right adrenal gland [facility] Diagnosis Primary hypertension Unspecified essential hypertension [facility]* Diagnosis Acute frontal sinusitis, recurrence not specified- Primary Cough in adult Bilateral non-suppurative otitis media Nonsuppurative otitis media, not specified as acute or chronic Essential hypertension Unspecified essential hypertension [facility] Diagnosis Essential hypertension Unspecified essential hypertension [facility] Diagnosis Gastroesophageal reflux disease without esophagitis Esophageal reflux [facility]* Diagnosis Well woman exam with routine gynecological exam Routine gynecological examination Breast cancer screening by mammogram [facility] Narrative No data available for this section [facility] Hospital Discharge instructions No data available for this section [facility] InstructionsNot on filedocumented in this encounter [facility] filedocumented in this encounter [facility] filedocumented in this encounter [facility]* Attachments The following attachments cannot be sent through Care Everywhere. * Cough, runny nose, and the common cold (Malagasy) * Sinusitis in adults (Malagasy) [facility] documented in this [facility] System[facility]ructionsNot on file [facility] No data available for this section [facility] Summary Purpose Family History No Family History Records FoundNo Family History Records Found No data available for this section No Family History Records FoundNo Family History Records FoundNo Family History Records FoundNo Family History Records FoundNo Family History Records FoundNo Family History Records Found No data available for this section No data available for this section No Family History Records Found No data available for this section No Family History Records Found Advance Directives Latest Code Status on File Code Status Date Activated Date Inactivated Comments Full Code 10/08/2022 8:37 PM 10/10/2022 5:16 PM Date Activated Date Inactivated Comments 10/08/2022 8:37 PM 10/10/2022 5:16 PM Additional Source Comments INFORMATION SOURCE (unrecogn ized section and content) DATE CREATED AUTHOR 11/24/2022 [facility] DATE CREATED AUTHOR AUTHOR'S ORGANIZ ATION 08/17/2023 [facility] DATE CREATED AUTHOR AUTHOR'S ORGANIZ ATION 03/04/2024 [facility] DATE CREATED AUTHOR AUTHOR'S ORGANIZ ATION 03/25/2024 [facility] DATE CREATED AUTHOR AUTHOR'S ORGANIZ ATION 03/27/2024 [facility] DATE CREATED AUTHOR AUTHOR'S ORGANIZ ATION 07/07/2024 [facility] DATE CREATED AUTHOR AUTHOR'S ORGANIZ ATION 03/25/2025 [facility] Patient Care team informatio n (unrecognized section and content) Road Supervisor Of Engines Relationship Specialty Start Date End Date Ana Prado MD [address] [place] [place] [address] PCP - General Internal Medicine 01/31/23 Road Supervisor Of Engines Relationship Specialty Start Date End Date Ana Prado MD [address] [place] [place] [address] PCP - General Internal Medicine 01/31/23 Road Supervisor Of Engines Relationship Specialty Start Date End Date Ana Prado MD [address] [place] [address] PCP - General Internal Medicine 01/31/23 Road Supervisor Of Engines Relationship Specialty Start Date End Date Ana Prado MD [address] [place] [address] PCP - General Internal Medicine 01/31/23 Road Supervisor Of Engines Relationship Specialty Start Date End Date Ana Prado MD [address] [place] [address] PCP - General Internal Medicine 01/31/23 Reason for Visit (unrecogniz ed section and content) Reason Comments Gynecologic Exam Reason Comments Results Review CT results Reason Onset Date Comments Med Refill 11/26/2023 Reason Comments Nasal Congestion Cough Reason Onset Date Comments Vaginitis 08/18/2023 Reason Comments Med Refill Reason Onset Date Comments Med Refill 09/18/2023 Reason Comments Well Women Visit FOR RECORDS PERTAINING TO PATIENTS WHO ARE [...] BE BASED ON THE PRIMARY CLINICAL RECORDS. [employer] provides no warranty or guarantee of the accuracy or completeness of information in this document.
[2025-04-05 17:12] LABS: Age Gdln ACOG Testing Note (.); IGP, Aptima HPV, rfx 16/18,45 Note (.)
== END 2025-03-30 20:24 | disposition home or self-care (01) ==
LOC: LAB 20:23
PROVIDERS: PCP Nurse Practitioner Family; Visit Provider Obstetrics & Gynecology
DX: Z01.419 Encounter for gynecological examination (general) (routine) without abnormal findings (principal)
CPT/HCPCS: 87624; 88175